=== PATIENT | male | born 1955 | race Caucasian/White ===

== ENCOUNTER 2017-09-27 15:55 | Observation (INO) | payer MEDICARE ==
--- NOTE | 2017-09-27 16:25 | ERPHSYRPT ---
- History of Present Illness Time Seen by Provider: 09/27/17 16:15 Source: patient Exam Limitations: no limitations Patient Subjective Stated Complaint: Pt reports not feeling well since yesterday. Pt with multiple complaints, fever, cough, chills, body aches, headache 8/10, vomiting x 2, no diarrhea today. Triage Nursing Assessment: Pt alert, oriented, answers all questions appropriately. Skin pink, warm, dry. Resps non-labored. Pt speaking in full sentences without difficulty. Pt able to transfer self from wheelchair to cot without difficulty. Pt placed on 2L oxygen at triage due to SPO2 91%. Physician History: The patient is a 61-year-old male with a friend complaining of a cough, fever, shortness of breath, sore throat, and muscle aches since yesterday morning. He did receive his influenza vaccination this year. He's also vomited 2 times. He has taken Tylenol. His past medical history is significant for schizoaffective disorder, depression, pneumonia, and and COPD. Timing/Duration: yesterday Cough Quality/Degree: dry cough Modifying Factors: Improves With: coughing Associated Symptoms: fever, cough, muscle aches, shortness of breath Allergies/Adverse Reactions: No Known Drug Allergies Allergy (Verified 09/27/17 16:05) Home Medications: Olanzapine [Zyprexa] 20 mg PO HS 11/13/14 [History] Venlafaxine HCl [Effexor] 325 mg PO DAILY 11/13/14 [History] Clonazepam [Klonopin] 6 mg PO UD 05/01/16 [History] Benztropine Mesylate [Cogentin] 09/27/17 [History] Olanzapine [Olanzapine] 09/27/17 [History] Omeprazole [Prilosec] 20 mg PO DAILY 09/27/17 [History] Pramipexole Di-HCl 0.5 mg [Mirapex 0.5 MG Tablet] 0.5 mg PO DAILY [History] Hx Tetanus, Diphtheria Vaccination/Date Given: Yes Hx Influenza Vaccination/Date Given: Yes Hx Pneumococcal Vaccination/Date Given: Yes Immunizations Up to Date: Yes - Review of Systems Constitutional: Fever Eyes: No Symptoms Ears, Nose, & Throat: Throat Pain Respiratory: Cough, Dyspnea Cardiac: No Chest Pain, No Edema, No Syncope Abdominal/Gastrointestinal: No Abdominal Pain, No Nausea, No Vomiting, No Diarrhea Genitourinary Symptoms: No Dysuria Musculoskeletal: Myalgias, No Back Pain, No Neck Pain Skin: No Rash Neurological: No Dizziness, No Focal Weakness, No Sensory Changes Psychological: No Symptoms Endocrine: No Symptoms Hematologic/Lymphatic: No Symptoms Immunological/Allergic: No Symptoms All Other Systems: Reviewed and Negative - Past Medical History Pertinent Past Medical History: Yes Neurological History: Migraines ENT History: Macular Degeneration Cardiac History: No Pertinent History Respiratory History: COPD Endocrine Medical History: No Pertinent History GI Medical History: No Pertinent History History: No Pertinent History Psycho-Social History: Other Male Reproductive Disorders: No Pertinent History Other Medical History: Schitzoaffective Disorder, Bipolar - Past Surgical History Past Surgical History: Yes Neuro Surgical History: No Pertinent History Cardiac: No Pertinent History Respiratory: No Pertinent History Gastrointestinal: Hernia Repair Genitourinary: No Pertinent History Musculoskeletal: Orthopedic Surgery Male Surgical History: No Pertinent History Other Surgical History: HERNIA - Social History Smoking Status: Current some day smoker How long have you smoked: 30 Exposure to second hand smoke: No Drug Use: none Patient Lives Alone: No Significant Family History: heart disease - Nursing Vital Signs Nursing Vital Signs: Initial Vital Signs Temperature 98.9 F 09/27/17 16:06 Pulse Rate 119 H 09/27/17 16:06 Respiratory Rate 20 09/27/17 16:06 Blood Pressure 137/82 09/27/17 16:06 O2 Sat by Pulse Oximetry 91 L 09/27/17 16:06 Pain Scale Pain Intensity 10 - Physical Exam General Appearance: mild distress Eye Exam: PERRL/EOMI, eyes nml inspection Ears, Nose, Throat Exam: normal ENT inspection, TMs normal, pharynx normal, moist mucous membranes Neck Exam: normal inspection, non-tender, supple, full range of motion Respiratory Exam: normal breath sounds, lungs clear, No respiratory distress Cardiovascular Exam: regular rate/rhythm, normal heart sounds Gastrointestinal/Abdomen Exam: soft, No tenderness Rectal Exam: not done Back Exam: normal inspection, No CVA tenderness, No vertebral tenderness Extremity Exam: normal inspection, normal range of motion Neurologic Exam: alert, oriented x 3, cooperative, normal mood/affect, sensation nml, No motor deficits Skin Exam: normal color, warm, dry, No rash Lymphatic Exam: No adenopathy SpO2 Interpretation: borderline oxygenation SpO2: 91 Oxygen Delivery: Room Air - Radiology Exams Chest X-ray Interpretation: Interpreted by me, Infiltrates (RML comp to AP CXR 04/17/16) , Other (elevated B hemidiaphragms.) Ordered Tests: Active Orders 24 hr Category Date Time Status IV Insertion STAT Care 09/27/17 16:28 Active Oxygen-ED Only NASAL CANNULA 2 lpm Care 09/27/17 16:28 Active CHEST 2 VIEWS (PA AND LAT) Stat Exams 09/27/17 16:29 Taken BLOOD CULTURE Stat Lab 09/27/17 17:01 Received CBC W DIFF Stat Lab 09/27/17 16:36 Completed CMP Stat Lab 09/27/17 16:36 Completed Lactic Acid Stat Lab 09/27/17 16:28 Completed NT PRO BNP Stat Lab 09/27/17 16:36 Completed TROPONIN Q3H Lab 09/27/17 16:43 Completed TROPONIN Q3H Lab 09/27/17 19:30 Ordered TROPONIN Q3H Lab 09/27/17 22:30 Ordered TROPONIN Q3H Lab 09/28/17 01:30 Ordered TROPONIN Q3H Lab 09/28/17 04:30 Ordered Respiratory Nebulizer STAT RT 09/27/17 16:30 Completed Medication Summary Discontinued Medications Generic Name Dose Route Start Last Admin Trade Name Freq PRN Reason Stop Dose Admin Albuterol/Ipratropium 3 ml 09/27/17 16:28 09/27/17 17:05 Duoneb 0.5-3 Mg/3 Ml Neb IH 09/27/17 16:29 3 ml STAT ONE Administration Albuterol/Ipratropium Confirm 09/27/17 17:08 Duoneb 0.5-3 Mg/3 Ml Neb Administered 09/27/17 17:09 Dose 3 ml IH .STK-MED ONE Sodium Chloride 1,000 mls @ 999 mls/hr 09/27/17 16:31 09/27/17 16:50 Sodium Chloride 0.9% 1000 Ml IV 09/27/17 17:31 999 mls/hr .Q1H1M STA Administration Sodium Chloride Confirm 09/27/17 16:44 Sodium Chloride 0.9% 1000 Ml Administered 09/27/17 16:45 Dose 1,000 mls @ ud .ROUTE .STK-MED ONE Ceftriaxone Sodium/Dextrose 1 g in 50 mls @ 100 mls/hr 09/27/17 17:03 17:39 Rocephin 1 Gm-D5w 50 Ml Bag IV 09/27/17 17:32 100 mls/hr STAT STA Administration Ceftriaxone Sodium/Dextrose Confirm 09/27/17 17:36 Rocephin 1 Gm-D5w 50 Ml Bag Administered 09/27/17 17:37 Dose 1 g in 50 mls @ ud IV .STK-MED ONE Ketorolac Tromethamine 30 mg 09/27/17 16:34 09/27/17 16:50 Toradol 30 Mg Injection IV 09/27/17 16:35 30 mg STAT ONE Administration Ketorolac Tromethamine Confirm 09/27/17 16:44 Toradol 30 Mg Injection Administered 09/27/17 16:45 Dose 30 mg .ROUTE .STK-MED ONE Methylprednisolone Sodium Succinate 125 mg 09/27/17 16:28 09/27/17 16:50 Solu-Medrol 125 Mg IV 09/27/17 16:29 125 mg STAT ONE Administration Methylprednisolone Sodium Succinate Confirm 09/27/17 16:44 Solu-Medrol 125 Mg Administered 09/27/17 16:45 Dose 125 mg .ROUTE .STK-MED ONE Lab/Rad Data: Laboratory Result Diagrams 09/27/17 16:36 09/27/17 16:36 Laboratory Results 09/27/17 09/27/17 09/27/17 Range/Units 17:01 16:43 16:36 WBC (4.0-10.5) K/mm3 RBC (4.1-5.6) M/mm3 Hgb (12.5-18.0) gm/dl Hct (42-50) % MCV (78-100) fl MCH (26-32) pg MCHC (32-36) g/dl RDW (11.5-14.0) % Plt Count (150-450) K/mm3 MPV (6-9.5) fl Gran % (36.0-66.0) % Lymphocytes % (24.0-44.0) % Monocytes % (0.0-12.0) % Eosinophils % (0.00-5.0) % Basophils % (0.0-0.4) % Basophils # (0-0.4) Sodium 130 L (136-145) mEq/L Potassium 3.8 (3.5-5.1) mEq/L Chloride 96 L (98-107) mEq/L Carbon Dioxide 23.1 (21-32) mEq/L Anion Gap 14.4 (5-15) MEQ/L BUN 8 L (9-20) mg/dL Creatinine 1.30 (0.55-1.30) mg/dl Estimated GFR 60 ML/MIN Glucose 115 H (70-110) MG/DL Lactic Acid (0.4-2.0) Calcium 8.1 L (8.5-10.1) mg/dL Total Bilirubin 0.80 (0.2-1.0) mg/dL AST 21 (15-37) U/L ALT 31 (12-78) U/L Alkaline Phosphatase 138 H (46-116) U/L Troponin I < 0.017 (0.000-0.056) ng/ml NT-Pro-B Natriuret Pep 26 (0-125) pg/ml Serum Total Protein 6.7 (6.4-8.2) gm/dL Albumin 3.6 (3.4-5.0) g/dL Influenza Type A Ag NEGATIVE (NEGATIVE) Influenza Type B Ag NEGATIVE (NEGATIVE) RSV (PCR) NEGATIVE (Negative) 09/27/17 09/27/17 Range/Units 16:36 16:28 WBC 12.9 H (4.0-10.5) K/mm3 RBC 4.82 (4.1-5.6) M/mm3 Hgb 15.5 (12.5-18.0) gm/dl Hct 43.8 (42-50) % MCV 90.9 (78-100) fl MCH 32.2 H (26-32) pg MCHC 35.4 (32-36) g/dl RDW 12.8 (11.5-14.0) % Plt Count 246 (150-450) K/mm3 MPV 9.0 (6-9.5) fl Gran % 87.2 H (36.0-66.0) % Lymphocytes % 6.9 L (24.0-44.0) % Monocytes % 5.7 (0.0-12.0) % Eosinophils % 0.1 (0.00-5.0) % Basophils % 0.1 (0.0-0.4) % Basophils # 0.01 (0-0.4) Sodium (136-145) mEq/L Potassium (3.5-5.1) mEq/L Chloride (98-107) mEq/L Carbon Dioxide (21-32) mEq/L Anion Gap (5-15) MEQ/L BUN (9-20) mg/dL Creatinine (0.55-1.30) mg/dl Estimated GFR ML/MIN Glucose (70-110) MG/DL Lactic Acid 1.3 (0.4-2.0) Calcium (8.5-10.1) mg/dL Total Bilirubin (0.2-1.0) mg/dL AST (15-37) U/L ALT (12-78) U/L Alkaline Phosphatase (46-116) U/L Troponin I (0.000-0.056) ng/ml NT-Pro-B Natriuret Pep (0-125) pg/ml Serum Total Protein (6.4-8.2) gm/dL Albumin (3.4-5.0) g/dL Influenza Type A Ag (NEGATIVE) Influenza Type B Ag (NEGATIVE) RSV (PCR) (Negative) - Progress Progress: improved Air Movement: good Blood Culture(s) Obtained: Yes Antibiotics given: Yes Discussed with : Rios Will see patient in: hospital (full admit) Counseled pt/family regarding: lab results, diagnosis, rad results - Departure Time of Disposition: 18:30 Departure Disposition: In-patient Admission (per Dr Nation) Clinical Impression: Pneumonia Condition: Stable Critical Care Time: No Referrals: MICHAEL WILLIAM [Primary Care Provider] -
[2017-09-27] MEDS ORDERED: solu-MEDROL 125 MG IV ONE (16:28)
[2017-09-27] MEDS ORDERED: DUONEB 0.5-3 MG/3 ml Neb IH ONE ×2 (16:28→17:08)
[2017-09-27] MEDS ORDERED: Sodium Chloride 0.9% 1000 ML 1,000 ML IV STA (16:31)
[2017-09-27] MEDS ORDERED: TORAdol 30 mg Injection IV ONE (16:34)
[2017-09-27 16:40] LABS: BASOPHIL % 0.1 % (0.0-0.4); Eosinophil % 0.1 % (0.00-5.0); Granulocytes % 87.2 % (36.0-66.0); Lymphocytes % 6.9 % (24.0-44.0); Mean Cell Volume 90.9 fl (78-100); Mean Corpuscular Hemoglobin 32.2 pg (26-32); Monocytes % 5.7 % (0.0-12.0); Platelet Count 246 K/mm3 (150-450); Red Blood Count 4.82 M/mm3 (4.1-5.6); Red Cell Distribution Width 12.8 % (11.5-14.0); White Blood Count 12.9 K/mm3 (4.0-10.5)
[2017-09-27] MEDS ORDERED: TORAdol 30 mg Injection ONE (16:44)
[2017-09-27] MEDS ORDERED: Sodium Chloride 0.9% 1000 ML 1,000 ML ONE (16:44)
[2017-09-27] MEDS ORDERED: solu-MEDROL 125 MG ONE (16:44)
[2017-09-27 17:03] LABS: ALBUMIN 3.6 g/dL (3.4-5.0); ANION GAP 14.4 MEQ/L (5-15); BILIRUBIN,TOTAL 0.8 mg/dL (0.2-1.0); Carbon Dioxide 23.1 mEq/L (21-32); Potassium 3.8 mEq/L (3.5-5.1); Total Protein 6.7 gm/dL (6.4-8.2)
[2017-09-27] MEDS ORDERED: ROCEPHIN 1 Gm-D5w 50 ml Bag** 1 G/50 ML IVPB IV STA (17:03)
[2017-09-27] MEDS ORDERED: ROCEPHIN 1 Gm-D5w 50 ml Bag** 1 G/50 ML IVPB IV ONE (17:36)
[2017-09-27] MEDS ORDERED: DUONEB 0.5-3 MG/3 ml Neb IH SCH (19:59)
[2017-09-27] MEDS ORDERED: TYLENOL 325 MG PO PRN (19:59)
[2017-09-27] MEDS ORDERED: PROVENTIL 2.5 MG/3 ML NEB IH SCH (19:59)
--- NOTE | 2017-09-27 20:15 | XRAY ---
Indication: Cough and flu symptoms. Comparison: April 17, 2016. PA/lateral chest underinflated today with new right lower lobe infiltrate versus atelectasis. No consolidation or large effusion. Heart is not enlarged. Bony thorax intact again with osteopenia, degenerative changes, and old right rib fractures. Impression: Underinflated lungs with new right lower lobe infiltrate/atelectasis. Correlate clinically.
[2017-09-27] MEDS ORDERED: DUONEB 0.5-3 MG/3 ml Neb IH PRN (21:09)
[2017-09-27] MEDS ORDERED: Nicoderm CQ 21 MG TOP SCH (21:15)
[2017-09-27] MEDS: Sodium Chloride 0.9% 1000 ML 1,000 ML IV SCH (21:30)
[2017-09-27] MEDS ORDERED: zyPREXA 5MG TABLET PO SCH (22:00)
[2017-09-27] MEDS ORDERED: KLONOPIN PO SCH (22:00)
[2017-09-27] MEDS: Zithromax 500 MG/ 250 ML NaCl Premix 500 MG/250 ML IVPB IV SCH (22:05)
[2017-09-28] MEDS: solu-MEDROL 125 MG IV SCH ×3 (00:09→12:48)
[2017-09-28 05:55] LABS: Mean Cell Volume 93.4 fl (78-100); Mean Corpuscular Hemoglobin 31.9 pg (26-32); Mean Platelet Volume 8.9 fl (6-9.5); Platelet Count 219 K/mm3 (150-450); Red Blood Count 4.07 M/mm3 (4.1-5.6); Red Cell Distribution Width 12.5 % (11.5-14.0); White Blood Count 13.2 K/mm3 (4.0-10.5)
[2017-09-28 06:16] LABS: ANION GAP 8.2 MEQ/L (5-15); BLOOD UREA NITROGEN 10 mg/dL (9-20); CHLORIDE 99 mEq/L (98-107); Carbon Dioxide 26.9 mEq/L (21-32); Glucose 159 MG/DL (70-110); Potassium 4.3 mEq/L (3.5-5.1); SODIUM 130 mEq/L (136-145)
[2017-09-28] MEDS ORDERED: Advair Hfa 115/21 Common canister IH SCH (07:00)
[2017-09-28 07:53] VITALS: O2SAT 91
--- NOTE | 2017-09-28 08:02 | PCM.HP ---
History of Present Illness - Chief Complaint Chief Complaint: Shortness of Breath History of Present Illness: The patient is a 61-year-old male with a friend complaining of a cough, fever, shortness of breath, sore throat, and muscle aches since yesterday morning. He did receive his influenza vaccination this year. He's also vomited 2 times. He has taken Tylenol. His past medical history is significant for schizoaffective disorder, depression, pneumonia, and and COPD. - Review of Systems Constitutional: No Fever, No Chills Eyes: No Symptoms Ears, Nose, & Throat: No Symptoms Respiratory: Cough, No Short Of Breath Cardiac: No Chest Pain, No Edema, No Syncope Abdominal/Gastrointestinal: No Abdominal Pain, No Nausea, No Vomiting, No Diarrhea Genitourinary Symptoms: No Dysuria Musculoskeletal: No Back Pain, No Neck Pain Skin: No Rash Neurological: No Dizziness, No Focal Weakness, No Sensory Changes Psychological: No Symptoms Endocrine: No Symptoms Hematologic/Lymphatic: No Symptoms Immunological/Allergic: No Symptoms Medications & Allergies Home Medications: Home Medication List Olanzapine [Zyprexa] 20 mg PO HS 11/13/14 [History Confirmed 05/01/16] Venlafaxine HCl [Effexor] 325 mg PO DAILY 11/13/14 [History Confirmed 09/27/17] Clonazepam [Klonopin] 4 mg PO UD 05/01/16 [History Confirmed 09/27/17] Benztropine Mesylate [Cogentin] 09/27/17 [History] Olanzapine [Olanzapine] 09/27/17 [History] Omeprazole [Prilosec] 20 mg PO DAILY 09/27/17 [History Confirmed 09/27/17] Pramipexole Di-HCl 0.5 mg [Mirapex 0.5 MG Tablet] 0.5 mg PO DAILY [History Confirmed 09/27/17] Allergies/Adverse Reactions: Allergies Allergy/AdvReac Type Severity Reaction Status Date / Time No Known Drug Allergies Allergy Verified 09/27/17 16:05 - Past Medical History Past Medical History: Yes Neurological History: Migraines ENT History: Macular Degeneration Cardiac History: Other Respiratory History: COPD, Pneumonia Endocrine Medical History: No Pertinent History Musculoskelatal History: No Pertinent History GI Medical History: No Pertinent History History: No Pertinent History Pyscho-Social History: Other Male Reproductive Disorders: No Pertinent History Comment: Schitzoaffective Disorder, Bipolar, enlarged heart - Past Surgical History Past Surgical History: Yes Neuro Surgical History: No Pertinent History Cardiac History: No Pertinent History Respiratory Surgery: No Pertinent History GI Surgical History: Hernia Repair Genitourinary Surgical Hx: No Pertinent History Musculskeletal Surgical Hx: Orthopedic Surgery Male Surgical History: No Pertinent History Other Surgical History: HERNIA - Social History Smoking Status: Current every day smoker How long have you smoked: 30 Exposure to second hand smoke: No Alcohol: None Drug Use: none Significant Family History: heart disease - Physical Exam Vital Signs: Vital Signs - 24 hr Temp Pulse Resp BP Pulse Ox 09/28/17 07:52 97.7 F 85 20 121/66 91 L 09/28/17 07:16 87 18 94 L 09/28/17 04:00 19 09/28/17 03:37 97.7 F 79 19 97/59 91 L 09/28/17 00:00 97.7 F 84 15 95/56 93 L 09/27/17 21:09 81 22 95 09/27/17 20:11 98.3 F 87 16 109/61 91 L 09/27/17 20:00 16 09/27/17 19:59 94 L 09/27/17 18:43 92 H 18 113/74 95 09/27/17 18:34 91 L 09/27/17 17:15 88 18 96 09/27/17 16:12 20 91 L 09/27/17 16:06 98.9 F 119 H 20 137/82 91 L Oxygen-Last 24 hours O2 Percentage 3 Liters = 32% O2 Percentage 3 Liters = 32% O2 Percentage 3 Liters = 32% General Appearance: no apparent distress, alert Neurologic Exam: alert, oriented x 3, cooperative, normal mood/affect, nml cerebellar function, nml station & gait, sensation nml, No motor deficits Eye Exam: PERRL/EOMI, eyes nml inspection Ears, Nose, Throat Exam: normal ENT inspection, TMs normal, pharynx normal, moist mucous membranes Neck Exam: normal inspection, non-tender, supple, full range of motion Respiratory Exam: diminished breath sounds, rhonchi, wheezing, No respiratory distress Cardiovascular Exam: regular rate/rhythm, normal heart sounds, normal peripheral pulses Gastrointestinal/Abdomen Exam: soft, normal bowel sounds, No tenderness, No mass Back Exam: normal inspection, normal range of motion, No CVA tenderness, No vertebral tenderness Extremity Exam: normal inspection, normal range of motion, pelvis stable Skin Exam: normal color, warm, dry, No rash Lymphatic Exam: No adenopathy Results - Labs Lab/Micro Results: Lab Results-Last 24 Hours 09/28/17 09/28/17 Range/Units 05:20 05:20 WBC 13.2 H (4.0-10.5) K/mm3 RBC 4.07 L (4.1-5.6) M/mm3 Hgb 13.0 (12.5-18.0) gm/dl Hct 38.0 L (42-50) % MCV 93.4 (78-100) fl MCH 31.9 (26-32) pg MCHC 34.2 (32-36) g/dl RDW 12.5 (11.5-14.0) % Plt Count 219 (150-450) K/mm3 MPV 8.9 (6-9.5) fl Sodium 130 L (136-145) mEq/L Potassium 4.3 (3.5-5.1) mEq/L Chloride 99 (98-107) mEq/L Carbon Dioxide 26.9 (21-32) mEq/L Anion Gap 8.2 (5-15) MEQ/L BUN 10 (9-20) mg/dL Creatinine 1.10 (0.55-1.30) mg/dl Estimated GFR > 60 ML/MIN Glucose 159 H (70-110) MG/DL Calcium 7.7 L (8.5-10.1) mg/dL - Other Procedures and Tests Respiratory Therapy 09/27/17 21:09 Respiratory Nebulizer UD 09/28/17 07:00 Respiratory MDI BID Assessment/Plan (1) Pneumonia Current Visit: Yes Status: Acute Qualifiers: Pneumonia type: due to unspecified organism Laterality: right Lung location: lower lobe of lung Qualified Code(s): J18.1 - Lobar pneumonia, unspecified organism Code(s): J18.9 - PNEUMONIA, UNSPECIFIED ORGANISM (2) COPD (chronic obstructive pulmonary disease) Current Visit: Yes Status: Chronic Qualifiers: COPD type: chronic bronchitis (3) Schizoaffective disorder Current Visit: No Status: Chronic Code(s): F25.9 - SCHIZOAFFECTIVE DISORDER , UNSPECIFIED
[2017-09-28] MEDS: Sodium Chloride 0.9% 1000 ML 1,000 ML IV SCH (09:09)
[2017-09-28] MEDS ORDERED: ROCEPHIN 1 Gm-D5w 50 ml Bag** 1 G/50 ML IVPB IV SCH (10:00)
[2017-09-28] MEDS: Zithromax 500 MG/ 250 ML NaCl Premix 500 MG/250 ML IVPB IV SCH (10:31)
[2017-09-28] MEDS ORDERED: MEDICATION INTERVENTION MC PRN (11:21)
[2017-09-28] MEDS ORDERED: COGENTIN 0.5 MG PO SCH (11:30)
[2017-09-28] MEDS ORDERED: Spiriva 18 Mcg/Cap Inhaler IH SCH (11:30)
[2017-09-28] MEDS ORDERED: Effexor XR 75 MG PO SCH (11:30)
[2017-09-28] MEDS ORDERED: Protonix 40MG Tablet PO SCH (11:30)
[2017-09-28] MEDS ORDERED: KLONOPIN PO SCH (11:30)
[2017-09-28 12:33] VITALS: BP 119/59; PULSE 97
--- NOTE | 2017-09-28 12:44 | PCM.DCORD ---
- Discharge Discharge Date: 09/28/17 Disposition: Home, Self-Care Condition: Stable Prescriptions: New Levofloxacin [Levaquin] 500 mg PO DAILY #7 tablet Continue Pramipexole Di-HCl 0.5 mg [Mirapex 0.5 MG Tablet] 0.5 mg PO DAILY Omeprazole [Prilosec] 40 mg PO DAILY Olanzapine 20 mg PO HS Clonazepam [Klonopin] 4 mg PO HS Clonazepam [Klonopin] 2 mg PO QAM Venlafaxine HCl ER 75 mg [Effexor XR 75 MG] 225 mg PO QAM Benztropine Mesylate 1 mg PO DAILY Tiotropium [place] Inhaler [Spiriva 18 Mcg/Cap Inhaler] 1 cap IH DAILY Ipratropium [place] [Atrovent Hfa] 1 puff IH BID Fluticasone/Salmeterol Disc [Advair 250-50 Diskus 14 Dose] 1 puff IH BIDRT Armodafinil [Nuvigil] 250 mg PO BID Follow up with: MICHAEL WILLIAM [Primary Care Provider] - 1 Week
[2017-09-28] MEDS ORDERED: MOTRIN 400 MG PO PRN (12:52)
[2017-09-28] MEDS ORDERED: NON-FORMULARY ITEM (Armodafinil [Nuvigil] 250 MG) PO SCH (22:00)
[2017-09-29] MEDS ORDERED: BENZTROPINE MESYLATE 1 MG PO SCH (10:00)
[2017-09-29] MEDS ORDERED: Mirapex 0.5 MG Tablet PO SCH (10:00)
== END 2017-09-28 13:50 | disposition home or self-care (01) ==
LOC: ED 15:55 → OBSVTOIN 19:53 → MED SURG 19:53 → UNDOADMOB 19:53 → INTOOBSV 19:53 → MED SURG 09-28 08:00 → UNDODISOB 09-28 13:50
PROVIDERS: ADMIT General Practice; ATTEND General Practice
DX: J18.9 Pneumonia, unspecified organism (principal); J44.9 Chronic obstructive pulmonary disease, unspecified; F25.9 Schizoaffective disorder, unspecified; I51.7 Cardiomegaly; Z79.899 Other long term (current) drug therapy; Z72.0 Tobacco use
CPT/HCPCS: 36000; 36415; 71020; 80048; 80053; 83605; 83880; 84484; 85025; 85027; 87040; 87631; 94640; 94760; 96360; 96365; 96374; 96375; 99285; G0378; J0456; J0696; J1885; J2930; A9270-GY

== ENCOUNTER 2017-12-28 02:17 | Observation (INO) | payer MEDICARE ==
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
[2017-12-28] MEDS ORDERED: Adacel Vial IM ONE ×2 (02:48→02:55)
[2017-12-28] MEDS ORDERED: XYLOCAINE 1% HCL 20 ML MDV IJ ONE (02:48)
[2017-12-28] MEDS ORDERED: Sodium Chloride 0.9% 1000 ML 1,000 ML IV SCH (03:00)
[2017-12-28] MEDS ORDERED: MORPHINE SULFATE 4 MG INJ IV ONE ×2 (03:34→04:23)
[2017-12-28] MEDS ORDERED: XYLOCAINE 1% HCL 20 ML MDV ONE (03:37)
[2017-12-28] MEDS ORDERED: MORPHINE SULFATE 4 MG INJ ONE ×2 (03:42→04:29)
[2017-12-28 04:00] LABS: BASOPHIL % 0.1 % (0.0-0.4); Basophil (Absolute #) 0.01 (0-0.4); Eosinophil % 1.5 % (0.00-5.0); Eosinophil (Absolute #) 0.15 (0-0.5); Granulocyte Absolute (ANC) 7.13 (1.4-6.9); Granulocytes % 69.5 % (36.0-66.0); Hematocrit 45.1 % (42-50); Hemoglobin 15.7 gm/dl (12.5-18.0); Lymphocyte (Absolute #) 2.01 (1.0-4.6); Lymphocytes % 19.6 % (24.0-44.0); Mean Cell Volume 93.6 fl (78-100); Mean Corpuscular Hemoglobin 32.6 pg (26-32); Mean Corpuscular Hgb Concent. 34.8 g/dl (32-36); Mean Platelet Volume 9.1 fl (6-9.5); Monocyte (Absolute #) 0.95 (0.0-1.3); Monocytes % 9.3 % (0.0-12.0); Platelet Count 243 K/mm3 (150-450); Red Blood Count 4.82 M/mm3 (4.1-5.6); Red Cell Distribution Width 13.3 % (11.5-14.0); White Blood Count 10.3 K/mm3 (4.0-10.5)
[2017-12-28 04:21] LABS: ALBUMIN 3.6 g/dL (3.5-5.0); ALKALINE PHOSPHATASE 182 U/L (38-126); ANION GAP 11.6 MEQ/L (5-15); BLOOD UREA NITROGEN 7 mg/dL (9-20); CHLORIDE 104 mmol/L (98-107); Calcium 8.6 mg/dL (8.4-10.2); Carbon Dioxide 27 mmol/L (22-30); Creatinine 1 0.71 mg/dL (0.66-1.25); Glucose 77 mg/dL (74-106); Potassium 3.6 mmol/L (3.5-5.1); SGOT/AST 20 U/L (17-59); SGPT/ALT 72 U/L (0-50); SODIUM 139 mmol/L (137-145); Total Protein 6.1 g/dL (6.3-8.2)
[2017-12-28] MEDS ORDERED: BENADRYL 50 MG/ML IV ONE (04:22)
[2017-12-28] MEDS ORDERED: Zofran 4 MG/2 ML VIAL IV ONE (04:23)
[2017-12-28] MEDS ORDERED: BENADRYL 50 MG/ML ONE (04:28)
[2017-12-28] MEDS ORDERED: Zofran 4 MG/2 ML VIAL ONE (04:28)
[2017-12-28] MEDS ORDERED: Sodium Chloride 0.9% 1000 ML 1,000 ML ONE (04:29)
[2017-12-28 04:31] LABS: ACETAMINOPHEN < 10 ug/ml (10-30); ETHYL ALCOHOL < 10 mg/dL (0-9); SALICYLATE < 1.0 mg/dL (2-20)
[2017-12-28] MEDS ORDERED: BACIGUENT PACKET ONE (06:20)
[2017-12-28 07:06] LABS: Appearance CLEAR (CLEAR); Bilirubin NEGATIVE (NEGATIVE); Blood 50 Ery/ul (0-5); Glucose NEGATIVE (NEGATIVE); Ketones NEGATIVE (NEGATIVE); Leukocyte Esterase NEGATIVE (NEGATIVE); Nitrite NEGATIVE (NEGATIVE); Protein,Urine Dip NEGATIVE (Negative); Specific Gravity 1.005 (1.005-1.025); Urobilinogen NORMAL mg/dL (0-1)
[2017-12-28 07:08] LABS: Bacteria RARE /HPF (NEGATIVE); Epithelial Cells RARE /HPF (FEW); WBC 0-2 /HPF (0-5)
[2017-12-28 07:14] LABS: Amphetamine,Urine NEGATIVE (NEGATIVE); Barbiturate,Urine NEGATIVE (NEGATIVE); Benzodiazepine,Urine NEGATIVE (NEGATIVE); Cocaine,Urine NEGATIVE (NEGATIVE); Methadone,Urine NEGATIVE (NEGATIVE); Opiate,Urine POSITIVE (NEGATIVE); PCP,Urine NEGATIVE (NEGATIVE); THC,Urine NEGATIVE (NEGATIVE)
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
[2017-12-28] MEDS ORDERED: MORPHINE SULFATE 4 MG INJ IV PRN (10:02)
[2017-12-28] MEDS ORDERED: Zofran 4 MG/2 ML VIAL IV PRN (10:02)
[2017-12-28] MEDS ORDERED: Pepcid 20 MG VIAL IV SCH (10:02)
[2017-12-28] MEDS ORDERED: NovoLIN R SQ PRN (10:02)
[2017-12-28 11:52] LABS: Hematocrit 44.5 % (42-50); Hemoglobin 15.2 gm/dl (12.5-18.0); Mean Cell Volume 95.5 fl (78-100); Mean Corpuscular Hemoglobin 32.6 pg (26-32); Mean Corpuscular Hgb Concent. 34.2 g/dl (32-36); Mean Platelet Volume 8.9 fl (6-9.5); Platelet Count 200 K/mm3 (150-450); Red Blood Count 4.66 M/mm3 (4.1-5.6); Red Cell Distribution Width 13.6 % (11.5-14.0); White Blood Count 5.9 K/mm3 (4.0-10.5)
[2017-12-28] MEDS ORDERED: PROVENTIL COMMON CANISTER IH PRN (12:13)
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
[2017-12-28 12:49] LABS: ANION GAP 11.3 MEQ/L (5-15); BLOOD UREA NITROGEN 7 mg/dL (9-20); CHLORIDE 104 mmol/L (98-107); Calcium 8.1 mg/dL (8.4-10.2); Carbon Dioxide 29 mmol/L (22-30); Creatinine 1 0.74 mg/dL (0.66-1.25); Glucose 85 mg/dL (74-106); Potassium 4.3 mmol/L (3.5-5.1); SODIUM 140 mmol/L (137-145)
[2017-12-28 12:55] LABS: PREALBUMIN 17.66 mg/dL (17.6-36.0)
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
[2017-12-28 17:37] VITALS: BP 124/97; PULSE 73; O2SAT 96
[2017-12-28] MEDS ORDERED: Advair Hfa 115/21 Common canister IH SCH (19:00)
== END 2017-12-28 19:30 | disposition short-term general hospital (02) ==
LOC: ED 02:17 → EEVIPCON 02:17 → ICU 09:59 → UNDOADMOB 09:59 → UNDODISOB 19:30
PROVIDERS: ADMIT General Practice; ATTEND General Practice
DX: F32.9 Major depressive disorder, single episode, unspecified (principal); R45.851 Suicidal ideations; S31.119A Laceration without foreign body of abdominal wall, unspecified quadrant without penetration into peritoneal cavity, initial encounter; X78.9XXA Intentional self-harm by unspecified sharp object, initial encounter; Z79.899 Other long term (current) drug therapy
CPT/HCPCS: 93268; 90791; 99285; 96360; 93005; 81000; 36415; 80307 ×2; 85027; 85025; 80048; 80053; 84134; 74176; G0480; G0481; 90471; 90715; G0378; J1200; J2270; J2405; Q3014; A9270-GY

== ENCOUNTER 2019-07-29 13:51 | Emergency (ER) | payer MEDICARE ==
[2019-07-29] MEDS ORDERED: Hydromorphone 1 mg/ml Ampule IV ONE ×2 (14:00→15:38)
[2019-07-29] MEDS ORDERED: Zofran 4 MG/2 ML VIAL IV ONE (14:00)
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
[2019-07-29] MEDS ORDERED: Ativan 2 MG/1 ML VIAL IV ONE ×2 (14:01→14:21)
[2019-07-29] MEDS ORDERED: Zofran 4 MG/2 ML VIAL ONE (14:05)
[2019-07-29] MEDS ORDERED: Ativan 2 MG/1 ML VIAL ONE (14:06)
[2019-07-29] MEDS ORDERED: Hydromorphone 1 mg/ml Ampule ONE ×2 (14:07→15:52)
[2019-07-29 14:25] LABS: Absolute Neutrophil Ct (ANC) 10.93 (1.4-6.9); BASOPHIL % 0.1 % (0.0-0.4); Basophil (Absolute #) 0.01 (0-0.4); Eosinophil % 0.2 % (0.00-5.0); Eosinophil (Absolute #) 0.03 (0-0.5); Hematocrit 42.7 % (42-50); Hemoglobin 15.6 gm/dl (12.5-18.0); Lymphocyte (Absolute #) 0.57 (1.0-4.6); Lymphocytes % 4.7 % (24.0-44.0); Mean Cell Volume 96.8 fl (78-100); Mean Corpuscular Hemoglobin 35.4 pg (26-32); Mean Corpuscular Hgb Concent. 36.5 g/dl (32-36); Mean Platelet Volume 8.9 fl (6-9.5); Monocyte (Absolute #) 0.69 (0.0-1.3); Monocytes % 5.6 % (0.0-12.0); Neutrophil % 89.4 % (36.0-66.0); Platelet Count 328 K/mm3 (150-450); Red Blood Count 4.41 M/mm3 (4.1-5.6); Red Cell Distribution Width 14.1 % (11.5-14.0); White Blood Count 12.2 K/mm3 (4.0-10.5)
[2019-07-29 14:30] LABS: ALBUMIN 4.4 g/dL (3.5-5.0); ALKALINE PHOSPHATASE 115 U/L (38-126); ANION GAP 21.5 MEQ/L (5-15); BLOOD UREA NITROGEN 4 mg/dL (9-20); CHLORIDE 103 mmol/L (98-107); Calcium 9.1 mg/dL (8.4-10.2); Carbon Dioxide 19 mmol/L (22-30); Creatinine 1 0.83 mg/dL (0.66-1.25); Glucose 131 mg/dL (74-106); Potassium 4.1 mmol/L (3.5-5.1); SGOT/AST 64 U/L (17-59); SGPT/ALT 32 U/L (0-50); SODIUM 139 mmol/L (137-145); Total Protein 7.2 g/dL (6.3-8.2)
--- NOTE | 2019-07-29 15:21 | XRAY ---
Indication: Abdomen and back pain. Multiple contiguous axial images obtained through the abdomen and pelvis without contrast as ordered. Comparison: December 28, 2017. Lung bases again hyperinflated. No infiltrate or effusion. Heart is not enlarged. Stable moderate paraesophageal hiatal hernia. Stomach is distended with food/fluid. Noncontrasted stomach and bowel loops appear nonobstructed. Normal air-filled appendix. Again mild diffuse scattered colonic fecal debris throughout and minimal scattered colonic diverticulosis. Gallbladder is moderately distended. Previous tiny gallstone not seen either passed or explained by difference in slice acquisition. No free fluid/air. Remaining liver, pancreas, spleen, adrenal glands, kidneys, ureters, and bladder appear unremarkable for noncontrast exam. Stable mild scattered aortoiliac calcifications without AAA. Osseous structures intact again with mild levoscoliosis and old right lower rib fractures. Impression: 1. Distended gallbladder without gallstones. 2. Again mild diffuse fecal stasis, colonic diverticulosis, and small paraesophageal hiatal hernia. 3. Stable levoscoliosis and old right rib fractures. 4. Remaining CT abdomen/pelvis without contrast exam is negative. CTDI 23.49
--- NOTE | 2019-07-29 15:25 | XRAY ---
Indication: Severe low back pain. Sagittal, coronal, and axial reformatted images of the lumbar spine obtained using the raw data from the CT abdomen/pelvis study of the same day. Comparison: December 28, 2017. Axial images negative for acute fracture or suspicious bony lesions. Stable minimal broad-based disc bulge at L3-L5 levels with right foraminal narrowing. No large disc herniation or spinal canal stenosis. Facets are symmetric. Sagittal and coronal reformatted images demonstrates stable mild levoscoliosis centered at L3. Vertebral body heights and disc spaces maintained. No acute compression fracture or subluxation. CT abdomen/pelvis reported separately. Impression: Stable minimal L3-L5 broad-based disc bulge and levoscoliosis. No new/acute findings.
[2019-07-29 15:56] VITALS: BP 115/83; PULSE 108; O2SAT 94
== END 2019-07-29 16:07 | disposition home or self-care (01) ==
LOC: ED 13:51
DX: M54.5 Low back pain (principal)
CPT/HCPCS: 36000; 36415; 74176; 76376; 80053; 85025; 96374; 96375; 99284; J1170; J2060; J2405

== ENCOUNTER 2020-01-08 05:27 | Emergency (ER) | payer MEDICARE ==
[2020-01-08] MEDS ORDERED: Zofran 4 MG/2 ML VIAL IV ONE (05:43)
[2020-01-08] MEDS ORDERED: SUBLIMAZE 100 MCG/2 ML IV ONE (05:43)
--- NOTE | 2020-01-08 05:43 | ERPHSYRPT ---
- History of Present Illness Historian: patient Exam Limitations: no limitations Hx Tetanus, Diphtheria Vaccination/Date Given: Yes Hx Influenza Vaccination/Date Given: Yes Hx Pneumococcal Vaccination/Date Given: Yes <JUMA MOFFETT - Last Filed: 01/08/20 07:02> <PABLO DOOLEY - Last Filed: 01/08/20 07:39> - History of Present Illness Time Seen by Provider: 01/08/20 05:27 Physician History: About 1 hour ago pt started with non-radiating dull 10/10 upper mid abdominal pain with nausea and vomiting x2 without blood. LBM was yesterday & wnl without blood. Pt deines chest pain, shortness of air, fever, cough, dysuria. (JUMA MOFFETT) Allergies/Adverse Reactions: No Known Drug Allergies Allergy (Verified 01/08/20 05:42) Home Medications: OLANZapine [Olanzapine] 20 mg PO HS 09/27/17 [History] Omeprazole [Prilosec] 40 mg PO DAILY 09/27/17 [History] Pramipexole Di-HCl 0.5 mg [Mirapex 0.5 MG Tablet] 0.5 mg PO HS 09/27/17 [ History] Armodafinil [Nuvigil] 250 mg PO BID 09/28/17 [History] Benztropine Mesylate 1 mg PO DAILY 09/28/17 [History] Clonazepam [Klonopin] 2 mg PO QAM 09/28/17 [History] Clonazepam [Klonopin] 4 mg PO HS 09/28/17 [History] Fluticasone/Salmeterol Disc [Advair 250-50 Diskus 14 Dose] 1 puff IH BIDRT 09/28/17 [History] Ipratropium Bim [Atrovent Hfa] 1 puff IH BID 09/28/17 [History] Tiotropium Bim Inhaler [Spiriva 18 Mcg/Cap Inhaler] 1 cap IH DAILY [History] Venlafaxine HCl ER 75 mg [Effexor XR 75 MG] 225 mg PO QAM 09/28/17 [ History] Magnesium Chloride 64 mg [Slow-Mag 64 MG] 1 tab PO DAILY 12/28/17 [History ] Mirtazapine 45 mg PO HS 12/28/17 [History] Multivit-Min/FA/Lutein/Zeaxant [Icaps Mv Tablet] 2 each PO BID 12/28/17 [History ] Travel Risk - International Travel Have you traveled outside of the country in past 3 weeks: No Have you or anyone close to you been diagnosed with or: No Do your reside in a community with a known COVID-19 case?: Yes If Yes where:: [facility] - Coronavirus Screening Has patient experienced Coronavirus symptoms: No <JUMA MOFFETT - Last Filed: 01/08/20 07:02> - Review of Systems Constitutional: No Fever Respiratory: No Cough, No Dyspnea Cardiac: No Chest Pain Abdominal/Gastrointestinal: Abdominal Pain, Nausea, Vomiting, No Diarrhea Genitourinary Symptoms: No Dysuria All Other Systems: Reviewed and Negative <JUMA MOFFETT - Last Filed: 01/08/20 07:02> - Past Medical History Pertinent Past Medical History: Yes Neurological History: Migraines ENT History: Macular Degeneration Cardiac History: Other Respiratory History: COPD, Pneumonia Endocrine Medical History: No Pertinent History Musculoskeletal History: No Pertinent History GI Medical History: No Pertinent History History: No Pertinent History Psycho-Social History: Other Male Reproductive Disorders: No Pertinent History Other Medical History: Schizoaffective Disorder, Bipolar, enlarged heart - Past Surgical History Past Surgical History: Yes Neuro Surgical History: No Pertinent History Cardiac: No Pertinent History Respiratory: No Pertinent History Gastrointestinal: Hernia Repair Genitourinary: No Pertinent History Musculoskeletal: Orthopedic Surgery Male Surgical History: No Pertinent History Other Surgical History: HERNIA - Social History Smoking Status: Current every day smoker How long have you smoked: 30 Exposure to second hand smoke: Yes Drug Use: none Patient Lives Alone: No Significant Family History: heart disease <JUMA MOFFETT - Last Filed: 01/08/20 07:02> - Physical Exam General Appearance: alert Eye Exam: PERRL/EOMI Ears, Nose, Throat Exam: pharynx normal, moist mucous membranes Neck Exam: normal inspection Respiratory Exam: No respiratory distress Cardiovascular Exam: normal heart sounds Gastrointestinal/Abdomen Exam: soft, normal bowel sounds, tenderness (mild epigastric tenderness) Back Exam: normal range of motion Extremity Exam: No pedal edema Neurologic Exam: alert, cooperative Skin Exam: No cyanosis SpO2 Interpretation: normal SpO2: 96 O2 Delivery: Room Air <JUMA MOFFETT - Last Filed: 01/08/20 07:02> <PABLO DOOLEY - Last Filed: 01/08/20 07:39> - Nursing Vital Signs Nursing Vital Signs: Initial Vital Signs Temperature 97.6 F 01/08/20 05:32 Pulse Rate 77 01/08/20 05:32 Respiratory Rate 18 01/08/20 05:32 Blood Pressure 109/68 01/08/20 05:32 O2 Sat by Pulse Oximetry 96 01/08/20 05:32 Pain Scale Pain Intensity 2 Ordered Tests: Active Orders 24 hr Category Date Time Status IV Insertion STAT Care 01/08/20 05:43 Active ABDOMEN AND PELVIS W/0 CONTRAS [CT] Stat Exams 01/08/20 05:44 Taken AMYLASE Stat Lab 01/08/20 05:55 Completed CBC W DIFF Stat Lab 01/08/20 05:55 Completed CMP Stat Lab 01/08/20 05:55 Completed LIPASE Stat Lab 01/08/20 05:55 Completed MAG [MAGNESIUM] Stat Lab 01/08/20 05:55 Completed UA W/RFX UR CULTURE Stat Lab 01/08/20 07:00 Completed Medication Summary Generic Name Dose Route Start Last Admin Trade Name Freq PRN Reason Stop Dose Admin Sodium Chloride 1,000 mls @ 100 mls/hr 01/08/20 05:45 01/08/20 06:00 Sodium Chloride 0.9% 1000 Ml IV 02/07/20 05:44 100 mls/hr .Q10H LISA Administration Discontinued Medications Generic Name Dose Route Start Last Admin Trade Name Freq PRN Reason Stop Dose Admin Fentanyl Citrate 100 mcg 01/08/20 05:43 01/08/20 06:00 Sublimaze 100 Mcg/2 Ml IV 01/08/20 05:44 100 mcg STAT ONE Administration Fentanyl Citrate Confirm 01/08/20 05:52 Sublimaze 100 Mcg/2 Ml Administered 01/08/20 05:53 Dose 100 mcg .ROUTE .STK-MED ONE Ondansetron HCl 4 mg 01/08/20 05:43 01/08/20 06:00 Zofran 4 Mg/2 Ml Vial IV 01/08/20 05:44 4 mg STAT ONE Administration Ondansetron HCl Confirm 01/08/20 05:52 Zofran 4 Mg/2 Ml Vial Administered 01/08/20 05:53 Dose 4 mg .ROUTE .STK-MED ONE Lab/Rad Data: Laboratory Result Diagrams 01/08/20 05:55 01/08/20 05:55 Laboratory Results 01/08/20 01/08/20 01/08/20 Range/Units 07:00 05:55 05:55 WBC (4.0-10.5) K/mm3 RBC (4.1-5.6) M/mm3 Hgb (12.5-18.0) gm/dl Hct (42-50) % MCV (78-100) fl MCH (26-32) pg MCHC (32-36) g/dl RDW (11.5-14.0) % Plt Count (150-450) K/mm3 MPV (7.5-11.0) fl Gran % (36.0-66.0) % Eos # (Auto) (0-0.5) Absolute Lymphs (auto) (1.0-4.6) Absolute Monos (auto) (0.0-1.3) Lymphocytes % (24.0-44.0) % Monocytes % (0.0-12.0) % Eosinophils % (0.00-5.0) % Basophils % (0.0-0.4) % Absolute Granulocytes (1.4-6.9) Basophils # (0-0.4) Sodium 132 L (137-145) mmol/L Potassium 3.6 (3.5-5.1) mmol/L Chloride 99 (98-107) mmol/L Carbon Dioxide 26 (22-30) mmol/L Anion Gap 10.9 (5-15) MEQ/L BUN 5 L (9-20) mg/dL Creatinine 0.62 L (0.66-1.25) mg/dL Estimated GFR > 60.0 ML/MIN Glucose 175 H (74-106) mg/dL Calcium 8.2 L (8.4-10.2) mg/dL Magnesium 2.0 (1.6-2.3) mg/dL Total Bilirubin 1.10 (0.2-1.3) mg/dL AST 81 H (17-59) U/L ALT 41 (0-50) U/L Alkaline Phosphatase 167 H (38-126) U/L Serum Total Protein 6.3 (6.3-8.2) g/dL Albumin 3.7 (3.5-5.0) g/dL Amylase 101 (30-110) U/L Lipase 383 H (23-300) U/L Urine Color YELLOW (YELLOW) Urine Appearance CLEAR (CLEAR) Urine pH 6.0 (5-6) Ur Specific Leroy 1.014 (1.005-1.025) Urine Protein NEGATIVE (Negative) Urine Ketones NEGATIVE (NEGATIVE) Urine Blood NEGATIVE (0-5) Gelacio/ul Urine Nitrite NEGATIVE (NEGATIVE) Urine Bilirubin NEGATIVE (NEGATIVE) Urine Urobilinogen 4 (0-1) mg/dL Ur Leukocyte Esterase NEGATIVE (NEGATIVE) Urine WBC (Auto) NONE (0-5) /HPF Urine RBC (Auto) NONE (0-2) /HPF U Hyaline Cast (Auto) 3-5 (0-2) /LPF U Epithel Cells (Auto) NONE (FEW) /HPF Urine Bacteria (Auto) NONE (NEGATIVE) /HPF Urine Mucus (Auto) SLIGHT (NEGATIVE) /HPF Urine Culture Reflexed NO (NO) Urine Glucose NEGATIVE (NEGATIVE) mg/dL 01/08/20 Range/Units 05:55 WBC 13.2 H (4.0-10.5) K/mm3 RBC 4.15 (4.1-5.6) M/mm3 Hgb 13.8 (12.5-18.0) gm/dl Hct 40.0 L (42-50) % MCV 96.4 (78-100) fl MCH 33.3 H (26-32) pg MCHC 34.5 (32-36) g/dl RDW 14.0 (11.5-14.0) % Plt Count 300 (150-450) K/mm3 MPV 8.1 (7.5-11.0) fl Gran % 86.9 H (36.0-66.0) % Eos # (Auto) 0.10 (0-0.5) Absolute Lymphs (auto) 0.80 L (1.0-4.6) Absolute Monos (auto) 0.80 (0.0-1.3) Lymphocytes % 6.1 L (24.0-44.0) % Monocytes % 6.1 (0.0-12.0) % Eosinophils % 0.8 (0.00-5.0) % Basophils % 0.1 (0.0-0.4) % Absolute Granulocytes 11.45 H (1.4-6.9) Basophils # 0.01 (0-0.4) Sodium (137-145) mmol/L Potassium (3.5-5.1) mmol/L Chloride (98-107) mmol/L Carbon Dioxide (22-30) mmol/L Anion Gap (5-15) MEQ/L BUN (9-20) mg/dL Creatinine (0.66-1.25) mg/dL Estimated GFR ML/MIN Glucose (74-106) mg/dL Calcium (8.4-10.2) mg/dL Magnesium (1.6-2.3) mg/dL Total Bilirubin (0.2-1.3) mg/dL AST (17-59) U/L ALT (0-50) U/L Alkaline Phosphatase (38-126) U/L Serum Total Protein (6.3-8.2) g/dL Albumin (3.5-5.0) g/dL Amylase (30-110) U/L Lipase (23-300) U/L Urine Color (YELLOW) Urine Appearance (CLEAR) Urine pH (5-6) Ur Specific Leroy (1.005-1.025) Urine Protein (Negative) Urine Ketones (NEGATIVE) Urine Blood (0-5) Gelacio/ul Urine Nitrite (NEGATIVE) Urine Bilirubin (NEGATIVE) Urine Urobilinogen (0-1) mg/dL Ur Leukocyte Esterase (NEGATIVE) Urine WBC (Auto) (0-5) /HPF Urine RBC (Auto) (0-2) /HPF U Hyaline Cast (Auto) (0-2) /LPF U Epithel Cells (Auto) (FEW) /HPF Urine Bacteria (Auto) (NEGATIVE) /HPF Urine Mucus (Auto) (NEGATIVE) /HPF Urine Culture Reflexed (NO) Urine Glucose (NEGATIVE) mg/dL <JUMA MOFFETT - Last Filed: 01/08/20 07:02> - Progress Progress: improved Counseled pt/family regarding: lab results, diagnosis, need for follow-up <PABLO DOOLEY - Last Filed: 01/08/20 07:39> - Progress Progress Note: 01/08/20 07:36 I received checkout on patient from Dr. Moffett. Per him, patient had abdominal pain last night. We were to follow-up on CT results and order an ultrasound. CT scan shows no gallbladder wall thickening. However mild distention of the gallbladder. Without signs of acute cholecystitis. Dr. Moffett wanted to order an ultrasound on the patient for further evaluation. I feel this is very reasonable as patient may have subtle acute cholecystitis only seen on ultrasound. I went into reexamine the patient. On my abdominal reexam the patient has no abdominal pain at all. I did recommend an ultrasound to the patient today. This is because he does have a slight increase in his white count, slight increase in white lipase, slightly elevated liver enzymes. Therefore, he may have the early stages of acute cholecystitis. I did explain the risks and benefits of an ultrasound today. The patient declines it today. I did discuss strict return precautions with the patient. He should return here for any new or changing abdominal pain. He will need an abdominal reexam in 24 hours with his PCP. He should return here immediately should anything change in his status. Patient states his understanding and will follow-up as described. He will not hesitate to call 911 and return should anything change. Plan of care was discussed with patient and all questions answered. The patient is agreeable to be discharged home and both verbal and printed discharge instructions were provided.The patient agreed to seek outpatient follow up as discussed. The patient was given strict instructions to return to the emergency department for worsening symptoms or any other emergent concerns. The patient verbalized understanding. (PABLO DOOLEY) <JUMA MOFFETT - Last Filed: 01/08/20 07:02> - Departure Departure Disposition: Home Critical Care Time: No <PABLO DOOLEY - Last Filed: 01/08/20 07:39> - Departure Clinical Impression: Abdominal pain Condition: Stable Referrals: KENNETH MCKEON MD [Primary Care Provider] - Instructions: Acute Abdomen (Belly Pain), Adult (DC)
[2020-01-08] MEDS ORDERED: Sodium Chloride 0.9% 1000 ML 1,000 ML IV SCH (05:45)
[2020-01-08] MEDS ORDERED: Zofran 4 MG/2 ML VIAL ONE (05:52)
[2020-01-08] MEDS ORDERED: SUBLIMAZE 100 MCG/2 ML ONE (05:52)
[2020-01-08] MEDS ORDERED: Sodium Chloride 0.9% 1000 ML 1,000 ML ONE (05:53)
[2020-01-08 06:05] LABS: Absolute Neutrophil Ct (ANC) 11.45 (1.4-6.9); BASOPHIL % 0.1 % (0.0-0.4); Basophil (Absolute #) 0.01 (0-0.4); Eosinophil % 0.8 % (0.00-5.0); Hemoglobin 13.8 gm/dl (12.5-18.0); Lymphocytes % 6.1 % (24.0-44.0); Mean Cell Volume 96.4 fl (78-100); Mean Corpuscular Hemoglobin 33.3 pg (26-32); Mean Corpuscular Hgb Concent. 34.5 g/dl (32-36); Mean Platelet Volume 8.1 fl (7.5-11.0); Monocytes % 6.1 % (0.0-12.0); Neutrophil % 86.9 % (36.0-66.0); Platelet Count 300 K/mm3 (150-450); Red Blood Count 4.15 M/mm3 (4.1-5.6); White Blood Count 13.2 K/mm3 (4.0-10.5)
[2020-01-08 06:22] LABS: ALBUMIN 3.7 g/dL (3.5-5.0); ALKALINE PHOSPHATASE 167 U/L (38-126); AMYLASE 101 U/L (30-110); ANION GAP 10.9 MEQ/L (5-15); BLOOD UREA NITROGEN 5 mg/dL (9-20); CHLORIDE 99 mmol/L (98-107); Calcium 8.2 mg/dL (8.4-10.2); Carbon Dioxide 26 mmol/L (22-30); Creatinine 1 0.62 mg/dL (0.66-1.25); Glucose 175 mg/dL (74-106); LIPASE 383 U/L (23-300); Potassium 3.6 mmol/L (3.5-5.1); SGOT/AST 81 U/L (17-59); SGPT/ALT 41 U/L (0-50); SODIUM 132 mmol/L (137-145); Total Protein 6.3 g/dL (6.3-8.2)
[2020-01-08 07:20] LABS: Appearance CLEAR (CLEAR); Bilirubin NEGATIVE (NEGATIVE); Blood NEGATIVE Ery/ul (0-5); Glucose NEGATIVE (NEGATIVE); Ketones NEGATIVE (NEGATIVE); Leukocyte Esterase NEGATIVE (NEGATIVE); Mucus SLIGHT /HPF (NEGATIVE); Nitrite NEGATIVE (NEGATIVE); Protein,Urine Dip NEGATIVE (Negative); Specific Gravity 1.014 (1.005-1.025); Urobilinogen 4 mg/dL (0-1)
[2020-01-08 08:14] VITALS: BP 118/74; PULSE 80; O2SAT 94
--- NOTE | 2020-01-08 08:49 | XRAY ---
Indication: Abdomen pain and emesis. Multiple contiguous axial images obtained through the abdomen and pelvis without contrast as ordered. Comparison: July 29, 2019 Lung bases again hyperinflated with now bibasilar atelectasis/scarring and tiny left effusion. Heart is not enlarged. Stable moderate-sized paraesophageal hiatal hernia now food filled. Noncontrasted stomach and bowel loops appear nonobstructed. Normal air-filled appendix. There is again mild scattered colonic fecal debris and minimal colonic diverticulosis. No free fluid/air. Stable nonobstructing punctate left renal calculus. New 6-7 mm gallstone. Remaining liver, gallbladder, pancreas, spleen, adrenal glands, kidneys, ureters, and bladder appear unremarkable for noncontrast exam. Stable mild aortoiliac calcifications without AAA. Osseous structures intact again with mild lumbar levoscoliosis and old right lower rib fractures. Impression: 1. Stable paraesophageal hiatal hernia. 2. New subcentimeter gallstone. 3. Again mild fecal stasis, colonic diverticulosis, and nonobstructing left renal micro-calculus. Comment: Preliminary interpretation was made by [facility]. No critical discrepancy.
== END 2020-01-08 09:10 | disposition home or self-care (01) ==
LOC: ED 05:27
DX: R10.9 Unspecified abdominal pain (principal); I51.7 Cardiomegaly; Z72.0 Tobacco use; Z79.899 Other long term (current) drug therapy
CPT/HCPCS: 36000; 36415; 74176; 80053; 81001; 82150; 83690; 83735; 85025; 96374; 96375; 99284; J2405; J3010

== ENCOUNTER 2021-01-28 21:05 | Inpatient (IN) | payer MEDICARE, BC ==
--- NOTE | 2021-01-28 21:11 | ERPHSYRPT ---
- History of Present Illness Time Seen by Provider: 01/28/21 21:11 Historian: patient Exam Limitations: no limitations Physician History: This is a 65-year-old white male whose had 5-day history of generalized abdominal pain. He does state that in the epigastric area the pain might be worse. He had associated nausea but no vomiting. He said no diarrhea. Patient denies primary chest pain. He does not have shortness of breath. Patient has history of chronic back pain, gastroesophageal reflux disease, COPD, migraine headaches, schizoaffective disorder and bipolar disorder. Patient was brought into the emergency room for evaluation and pain management. Timing/Duration: day(s) (5) Activities at Onset: none Quality: aching Abdominal Pain Onset Location: generalized abdomen Pain Radiation: no radiation Severity of Pain-Max: moderate Severity of Pain-Current: moderate Associated Symptoms: nausea, No diarrhea, No vomiting Previous symptoms: same symptoms as today Allergies/Adverse Reactions: No Known Drug Allergies Allergy (Verified 01/28/21 21:36) Home Medications: OLANZapine [Olanzapine] 20 mg PO HS 09/27/17 [History] Omeprazole [Prilosec] 40 mg PO DAILY 09/27/17 [History] Pramipexole Di-HCl 0.5 mg [Mirapex 0.5 MG Tablet] 0.5 mg PO HS 09/27/17 [History] Armodafinil [Nuvigil] 250 mg PO BID 09/28/17 [History] Benztropine Mesylate 1 mg PO DAILY 09/28/17 [History] Clonazepam [Klonopin] 2 mg PO QAM 09/28/17 [History] Clonazepam [Klonopin] 4 mg PO HS 09/28/17 [History] Fluticasone/Salmeterol Disc [Advair 250-50 Diskus 14 Dose] 1 puff IH BIDRT 09/28/17 [History] Ipratropium [place] [Atrovent Hfa] 1 puff IH BID 09/28/17 [History] Tiotropium [place] Inhaler [Spiriva 18 Mcg/Cap Inhaler] 1 cap IH DAILY 09/28/17 [History] Venlafaxine HCl ER 75 mg [Effexor XR 75 MG] 225 mg PO QAM 09/28/17 [History] Magnesium Chloride 64 mg [Slow-Mag 64 MG] 1 tab PO DAILY 12/28/17 [History] Mirtazapine 45 mg PO HS 12/28/17 [History] Multivit-Min/FA/Lutein/Zeaxant [Icaps Mv Tablet] 2 each PO BID 12/28/17 [History] Hx Tetanus, Diphtheria Vaccination/Date Given: Yes Hx Influenza Vaccination/Date Given: Yes Hx Pneumococcal Vaccination/Date Given: Yes Travel Risk - International Travel Have you traveled outside of the country in past 3 weeks: No - Coronavirus Screening Are you exhibiting any of the following symptoms?: No Close contact with a COVID-19 positive Pt in past 14-21 Days: No - Vaccine Status Have you recieved a Covid-19 vaccination: No - Review of Systems Constitutional: No Symptoms Eyes: No Symptoms Ears, Nose, & Throat: No Symptoms Respiratory: No Symptoms Cardiac: No Symptoms Abdominal/Gastrointestinal: Abdominal Pain, Nausea, No Vomiting, No Diarrhea Genitourinary Symptoms: No Symptoms Musculoskeletal: No Symptoms Skin: No Symptoms Neurological: No Symptoms Psychological: No Symptoms Endocrine: No Symptoms Hematologic/Lymphatic: No Symptoms Immunological/Allergic: No Symptoms All Other Systems: Reviewed and Negative - Past Medical History Pertinent Past Medical History: Yes Neurological History: Migraines ENT History: Macular Degeneration Cardiac History: Other Respiratory History: COPD, Pneumonia Endocrine Medical History: No Pertinent History Musculoskeletal History: No Pertinent History GI Medical History: No Pertinent History History: No Pertinent History Psycho-Social History: Other Male Reproductive Disorders: No Pertinent History Other Medical History: Schizoaffective Disorder, Bipolar, enlarged heart - Past Surgical History Past Surgical History: Yes Neuro Surgical History: No Pertinent History Cardiac: No Pertinent History Respiratory: No Pertinent History Gastrointestinal: Hernia Repair Genitourinary: No Pertinent History Musculoskeletal: Orthopedic Surgery Male Surgical History: No Pertinent History Other Surgical History: HERNIA - Social History Smoking Status: Current every day smoker How long have you smoked: 30 Exposure to second hand smoke: Yes Drug Use: none Patient Lives Alone: No Significant Family History: heart disease - Nursing Vital Signs Nursing Vital Signs: Initial Vital Signs Pulse Rate 93 H 01/28/21 21:14 Respiratory Rate 22 01/28/21 21:14 Blood Pressure 141/83 01/28/21 21:14 O2 Sat by Pulse Oximetry 96 01/28/21 21:14 Pain Scale Pain Intensity 7 - Physical Exam General Appearance: no apparent distress, alert, anxiety Eye Exam: PERRL/EOMI, eyes nml inspection Ears, Nose, Throat Exam: normal ENT inspection, moist mucous membranes Neck Exam: normal inspection, non-tender, supple, full range of motion Respiratory Exam: normal breath sounds, lungs clear, airway intact, No chest tenderness, No respiratory distress Cardiovascular Exam: regular rate/rhythm, normal heart sounds, normal peripheral pulses Gastrointestinal/Abdomen Exam: soft, normal bowel sounds, tenderness (Mild diffuse), guarding, No rebound Rectal Exam: not done Back Exam: normal inspection, normal range of motion, No CVA tenderness, No vertebral tenderness Extremity Exam: normal inspection, normal range of motion, pelvis stable Neurologic Exam: alert, oriented x 3, cooperative, ecology teacher II-XII nml as tested, normal mood/affect, nml cerebellar function, nml station & gait, sensation nml Skin Exam: normal color, warm, dry Lymphatic Exam: No adenopathy SpO2 Interpretation: normal O2 Delivery: Room Air - Course Nursing assessment & vital signs reviewed: Yes EKG Interpreted by Me: RATE (91), Sinus Rhythm, NORMAL AXIS, NORMAL INTERVALS, NORMAL QRS, NORMAL ST-T, Other (No acute ischemic changes on today's EKG. There is no change when compared to the EKG dated 12/28/2017) Ordered Tests: Active Orders 24 hr Category Date Time Status EKG-ER Only STAT Care 01/28/21 21:29 Active IV Insertion STAT Care 01/28/21 21:26 Active Oxygen-ED Only Nasal Cannula 2 lpm Care 01/28/21 21:30 Active ABDOMEN AND PELVIS W/0 CONTRAS [CT] Stat Exams 01/28/21 21:26 Taken AMYLASE Stat Lab 01/28/21 21:30 Completed CBC W DIFF Stat Lab 01/28/21 21:30 Completed CMP Stat Lab 01/28/21 21:30 Completed LIPASE Stat Lab 01/28/21 21:30 Completed Lactic Acid Stat Lab 01/28/21 21:26 Completed Lactic Acid Stat Lab 01/28/21 23:38 Received TROPONIN Q3H Lab 01/28/21 21:30 Completed TROPONIN Q3H Lab 01/29/21 00:30 Ordered TROPONIN Q3H Lab 01/29/21 03:30 Ordered TROPONIN Q3H Lab 01/29/21 06:30 Ordered TROPONIN Q3H Lab 01/29/21 09:30 Ordered UA W/RFX UR CULTURE Stat Lab 01/28/21 21:26 Ordered Medication Summary Discontinued Medications Generic Name Dose Route Start Last Admin Trade Name Angelica PRN Reason Stop Dose Admin Sodium Chloride 1,000 mls @ 999 mls/hr 01/28/21 21:26 01/28/21 22:50 Sodium Chloride 0.9% 1000 Ml IV 01/28/21 22:26 Infused .Q1H1M STA Infusion Sodium Chloride Confirm 01/28/21 21:31 Sodium Chloride 0.9% 1000 Ml Administered 01/28/21 21:32 Dose 1,000 mls @ ud .ROUTE .STK-MED ONE Meperidine HCl 50 mg 01/28/21 21:28 01/28/21 21:35 Demerol 50 Mg IV 01/28/21 21:29 50 mg STAT ONE Administration Meperidine HCl Confirm 01/28/21 21:31 Demerol 50 Mg Administered 01/28/21 21:32 Dose 50 mg .ROUTE .STK-MED ONE Meperidine HCl 50 mg 01/28/21 23:14 01/28/21 23:18 Demerol 50 Mg IV 01/28/21 23:15 50 mg STAT ONE Administration Meperidine HCl Confirm 01/28/21 23:16 Demerol 50 Mg Administered 01/28/21 23:17 Dose 50 mg .ROUTE .STK-MED ONE Ondansetron HCl 4 mg 01/28/21 21:26 01/28/21 21:35 Zofran 4 Mg/2 Ml Vial IV 01/28/21 21:27 4 mg STAT ONE Administration Ondansetron HCl Confirm 01/28/21 21:31 Zofran 4 Mg/2 Ml Vial Administered 01/28/21 21:32 Dose 4 mg .ROUTE .STK-MED ONE Lab/Rad Data: Laboratory Result Diagrams 01/28/21 21:30 01/28/21 21:30 Laboratory Results 01/28/21 01/28/21 01/28/21 Range/Units 21:30 21:30 21:30 WBC 5.8 (4.0-10.5) K/mm3 RBC 4.41 (4.1-5.6) M/mm3 Hgb 15.0 (12.5-18.0) gm/dl Hct 44.2 (42-50) % MCV 100.2 H (78-100) fl MCH 34.0 H (26-32) pg MCHC 33.9 (32-36) g/dl RDW 13.9 (11.5-14.0) % Plt Count 190 (150-450) K/mm3 MPV 9.1 (7.5-11.0) fl Gran % 63.9 (36.0-66.0) % Eos # (Auto) 0.14 (0-0.5) Absolute Lymphs (auto) 1.22 (1.0-4.6) Absolute Monos (auto) 0.71 (0.0-1.3) Lymphocytes % 21.2 L (24.0-44.0) % Monocytes % 12.3 H (0.0-12.0) % Eosinophils % 2.4 (0.00-5.0) % Basophils % 0.2 (0.0-0.4) % Absolute Granulocytes 3.68 (1.4-6.9) Basophils # 0.01 (0-0.4) Sodium 131 L (137-145) mmol/L Potassium 4.0 (3.5-5.1) mmol/L Chloride 101 (98-107) mmol/L Carbon Dioxide 23 (22-30) mmol/L Anion Gap 11.5 (5-15) MEQ/L BUN 11 (9-20) mg/dL Creatinine 1.12 (0.66-1.25) mg/dL Estimated GFR > 60.0 ML/MIN Glucose 98 (74-106) mg/dL Lactic Acid (0.4-2.0) Calcium 8.3 L (8.4-10.2) mg/dL Total Bilirubin 0.90 (0.2-1.3) mg/dL AST 174 H (17-59) U/L ALT 352 H (0-50) U/L Alkaline Phosphatase 266 H (38-126) U/L Troponin I < 0.012 (0.000-0.034) ng/mL Serum Total Protein 6.6 (6.3-8.2) g/dL Albumin 3.9 (3.5-5.0) g/dL Amylase 49 (30-110) U/L Lipase 120 (23-300) U/L 01/28/21 Range/Units 21:26 WBC (4.0-10.5) K/mm3 RBC (4.1-5.6) M/mm3 Hgb (12.5-18.0) gm/dl Hct (42-50) % MCV (78-100) fl MCH (26-32) pg MCHC (32-36) g/dl RDW (11.5-14.0) % Plt Count (150-450) K/mm3 MPV (7.5-11.0) fl Gran % (36.0-66.0) % Eos # (Auto) (0-0.5) Absolute Lymphs (auto) (1.0-4.6) Absolute Monos (auto) (0.0-1.3) Lymphocytes % (24.0-44.0) % Monocytes % (0.0-12.0) % Eosinophils % (0.00-5.0) % Basophils % (0.0-0.4) % Absolute Granulocytes (1.4-6.9) Basophils # (0-0.4) Sodium (137-145) mmol/L Potassium (3.5-5.1) mmol/L Chloride (98-107) mmol/L Carbon Dioxide (22-30) mmol/L Anion Gap (5-15) MEQ/L BUN (9-20) mg/dL Creatinine (0.66-1.25) mg/dL Estimated GFR ML/MIN Glucose (74-106) mg/dL Lactic Acid 3.3 H (0.4-2.0) Calcium (8.4-10.2) mg/dL Total Bilirubin (0.2-1.3) mg/dL AST (17-59) U/L ALT (0-50) U/L Alkaline Phosphatase (38-126) U/L Troponin I (0.000-0.034) ng/mL Serum Total Protein (6.3-8.2) g/dL Albumin (3.5-5.0) g/dL Amylase (30-110) U/L Lipase (23-300) U/L - Progress Progress: improved, re-examined Progress Note: 01/28/21 23:45 CAT scan of the abdomen and pelvis without contrast shows a hiatal hernia is present with possible thickening of the wall of the distal esophagus. There is cholelithiasis and interval increase in distention of the gallbladder. There appears to be mild stranding near the neck of the gallbladder. 01/28/21 23:46 Medical decision making: This patient has gallbladder distention with cholelithiasis and mild stranding near the neck of the gallbladder. Patient will be placed in observation, repeat labs will be performed tomorrow morning, will obtain a gallbladder ultrasound, and we will obtain a general surgical consultation with the [facility]. Specifically, the patient would like to be evaluated and possibly operated on by Dr. Sawyer [facility]. Discussed with : Barb Counseled pt/family regarding: lab results, diagnosis, need for follow-up, rad results - Departure Departure Disposition: Observation Clinical Impression: Acute calculous cholecystitis Condition: Stable Critical Care Time: No Referrals: KENNETH MCKEON MD [Primary Care Provider] -
[2021-01-28] MEDS ORDERED: Zofran 4 MG/2 ML VIAL IV ONE (21:26)
[2021-01-28] MEDS ORDERED: Sodium Chloride 0.9% 1000 ML 1,000 ML IV STA (21:26)
[2021-01-28] MEDS ORDERED: DEMEROL 50 MG IV ONE ×2 (21:28→23:14)
[2021-01-28] MEDS ORDERED: DEMEROL 50 MG ONE ×2 (21:31→23:16)
[2021-01-28] MEDS ORDERED: Sodium Chloride 0.9% 1000 ML 1,000 ML ONE (21:31)
[2021-01-28] MEDS ORDERED: Zofran 4 MG/2 ML VIAL ONE (21:31)
[2021-01-28 21:40] LABS: Absolute Neutrophil Ct (ANC) 3.68 (1.4-6.9); BASOPHIL % 0.2 % (0.0-0.4); Basophil (Absolute #) 0.01 (0-0.4); Eosinophil % 2.4 % (0.00-5.0); Eosinophil (Absolute #) 0.14 (0-0.5); Hematocrit 44.2 % (42-50); Lymphocyte (Absolute #) 1.22 (1.0-4.6); Lymphocytes % 21.2 % (24.0-44.0); Mean Cell Volume 100.2 fl (78-100); Mean Corpuscular Hgb Concent. 33.9 g/dl (32-36); Mean Platelet Volume 9.1 fl (7.5-11.0); Monocyte (Absolute #) 0.71 (0.0-1.3); Monocytes % 12.3 % (0.0-12.0); Neutrophil % 63.9 % (36.0-66.0); Platelet Count 190 K/mm3 (150-450); Red Blood Count 4.41 M/mm3 (4.1-5.6); Red Cell Distribution Width 13.9 % (11.5-14.0); White Blood Count 5.8 K/mm3 (4.0-10.5)
[2021-01-28 21:50] LABS: ALBUMIN 3.9 g/dL (3.5-5.0); ALKALINE PHOSPHATASE 266 U/L (38-126); AMYLASE 49 U/L (30-110); ANION GAP 11.5 MEQ/L (5-15); BLOOD UREA NITROGEN 11 mg/dL (9-20); CHLORIDE 101 mmol/L (98-107); Calcium 8.3 mg/dL (8.4-10.2); Carbon Dioxide 23 mmol/L (22-30); Creatinine 1 1.12 mg/dL (0.66-1.25); EST GLOMERULAR FILTRATION RATE > 60.0 ML/MIN; Glucose 98 mg/dL (74-106); LIPASE 120 U/L (23-300); SGOT/AST 174 U/L (17-59); SGPT/ALT 352 U/L (0-50); SODIUM 131 mmol/L (137-145); Total Protein 6.6 g/dL (6.3-8.2)
[2021-01-28] MEDS ORDERED: Levofloxacin 500MG/100ML D5W 500 MG/100 ML BAG IV STA (23:57)
[2021-01-29] MEDS ORDERED: Levofloxacin 500MG/100ML D5W 500 MG/100 ML BAG IV ONE (00:05)
[2021-01-29 00:52] LABS: INFLUENZA A NEGATIVE (NEGATIVE); INFLUENZA B NEGATIVE (NEGATIVE); RESPIRATORY SYNCTIAL VIRUS NEGATIVE (Negative)
[2021-01-29] MEDS ORDERED: Nicoderm CQ 21 MG TOP SCH (03:00)
[2021-01-29] MEDS: Sodium Chloride 0.9% 1000 ML 1,000 ML IV SCH ×3 (03:17→20:40)
[2021-01-29 03:32] LABS: Appearance CLEAR (CLEAR); Bilirubin NEGATIVE (NEGATIVE); Blood NEGATIVE Ery/ul (0-5); Glucose NEGATIVE (NEGATIVE); Ketones NEGATIVE (NEGATIVE); Leukocyte Esterase NEGATIVE (NEGATIVE); Mucus SLIGHT /HPF (NEGATIVE); Nitrite NEGATIVE (NEGATIVE); Protein,Urine Dip NEGATIVE (Negative); Specific Gravity 1.012 (1.005-1.025); Urobilinogen 4 mg/dL (0-1)
[2021-01-29 05:07] LABS: Absolute Neutrophil Ct (ANC) 2.56 (1.4-6.9); BASOPHIL % 0.2 % (0.0-0.4); Basophil (Absolute #) 0.01 (0-0.4); Eosinophil % 3.6 % (0.00-5.0); Eosinophil (Absolute #) 0.17 (0-0.5); Hematocrit 41.6 % (42-50); Hemoglobin 13.7 gm/dl (12.5-18.0); Lymphocyte (Absolute #) 1.41 (1.0-4.6); Lymphocytes % 30.2 % (24.0-44.0); Mean Cell Volume 103.2 fl (78-100); Mean Corpuscular Hgb Concent. 32.9 g/dl (32-36); Mean Platelet Volume 8.8 fl (7.5-11.0); Monocyte (Absolute #) 0.52 (0.0-1.3); Monocytes % 11.1 % (0.0-12.0); Neutrophil % 54.9 % (36.0-66.0); Platelet Count 158 K/mm3 (150-450); Red Blood Count 4.03 M/mm3 (4.1-5.6); Red Cell Distribution Width 14.1 % (11.5-14.0); White Blood Count 4.7 K/mm3 (4.0-10.5)
[2021-01-29 05:20] LABS: AMYLASE 52 U/L (30-110); LIPASE 295 U/L (23-300)
[2021-01-29 05:24] LABS: ALBUMIN 3.3 g/dL (3.5-5.0); ALKALINE PHOSPHATASE 242 U/L (38-126); ANION GAP 8.2 MEQ/L (5-15); BLOOD UREA NITROGEN 9 mg/dL (9-20); CHLORIDE 101 mmol/L (98-107); Calcium 7.9 mg/dL (8.4-10.2); Carbon Dioxide 28 mmol/L (22-30); Creatinine 1 0.74 mg/dL (0.66-1.25); EST GLOMERULAR FILTRATION RATE > 60.0 ML/MIN; Glucose 84 mg/dL (74-106); Potassium 4.3 mmol/L (3.5-5.1); SGOT/AST 109 U/L (17-59); SGPT/ALT 294 U/L (0-50); SODIUM 133 mmol/L (137-145); Total Protein 5.7 g/dL (6.3-8.2)
[2021-01-29] MEDS: DEMEROL 50 MG IV PRN ×3 (08:10→20:40)
--- NOTE | 2021-01-29 08:48 | XRAY ---
Indication: Abdomen pain, nausea, and elevated liver enzymes. Multiple contiguous axial images obtained through the abdomen and pelvis without contrast. Comparison: There are multiple priors, most recent January 08, 2020. Lung bases remain hyperinflated with scattered subsegmental atelectasis/scarring. No infiltrate or effusion. Heart is not enlarged. Stable moderate-sized paraesophageal hiatal hernia. Stomach is distended with food/fluid. Noncontrasted stomach and bowel loops nonobstructed again with normal-appearing appendix. There is increasing mild diffuse scattered colonic fecal debris throughout. No free fluid/air. Gallbladder distended with interval enlarging 1.4 cm stone. No abnormal biliary distention. Stable nonobstructing left renal punctate calculus. Remaining liver, pancreas, spleen, adrenal glands, kidneys, ureters, and bladder are unremarkable for noncontrast exam. Stable mild scattered aortoiliac calcifications without AAA. Osseous structures demonstrates new T12 compression fracture with kyphoplasty. There remains mild multilevel thoracolumbar degenerative spondylosis, mild lumbar levoscoliosis, and old bilateral lower rib fractures. Impression: 1. Distended gallbladder with interval enlarging gallstone. Gallbladder sonogram may yield further information. 2. Worsening diffuse fecal stasis. 3. Again incidental paraesophageal hiatal hernia, nonobstructing left renal punctate calculus, and chronic bony findings. Comment: Preliminary interpretation was made by [facility]. No critical discrepancy.
[2021-01-29] MEDS ORDERED: MEDICATION INTERVENTION PO SCH (09:45)
[2021-01-29] MEDS ORDERED: NON-FORMULARY ITEM (Armodafinil [Nuvigil] 250 MG) PO SCH (10:00)
[2021-01-29] MEDS: KLONOPIN PO SCH ×2 (10:35→22:39)
[2021-01-29] MEDS: Effexor XR 75 MG PO SCH (10:35)
--- NOTE | 2021-01-29 10:58 | XRAY ---
Indication: Abdomen pain. Cholecystitis. Two-dimensional gallbladder sonogram performed. Comparison: None Pancreas obscured due to overlying bowel gas. Gallbladder normally distended with multiple gallstones, largest 2 cm. Also abnormal gallbladder wall thickening up to 4 mm and tiny gallbladder wall echodensities with common tail artifact favoring adenomyomatosis. No pericholecystic fluid. Common bile duct measures 2.1 mm. Remaining visualized liver and right kidney sonographically unremarkable. Right kidney measures 10 cm in length. No ascites. Impression: 1. Nonvisualization pancreas. 2. Cholelithiasis. Also abnormal gallbladder wall thickening with sonographic features favoring adenomyomatosis.
--- NOTE | 2021-01-29 12:06 | PCM.HP ---
History of Present Illness - Chief Complaint Chief Complaint: abd pain for 2-3 days History of Present Illness: is a 65 year old male.who had 5-day history of generalized abdominal pain. He does state that in the epigastric area the pain might be worse. He had associated nausea but no vomiting. He said no diarrhea. Patient denies primary chest pain. He does not have shortness of breath. Patient has history of chronic back pain, gastroesophageal reflux disease, COPD, migraine headaches, schizoaffective disorder and bipolar disorder. Patient was brought into the emergency room for evaluation and pain management. - Review of Systems Constitutional: No Fever, No Chills Eyes: No Symptoms Ears, Nose, & Throat: No Symptoms Respiratory: No Cough, No Short Of Breath Cardiac: No Chest Pain, No Edema, No Syncope Abdominal/Gastrointestinal: Abdominal Pain, Nausea, Vomiting, No Diarrhea Genitourinary Symptoms: No Dysuria Musculoskeletal: No Back Pain, No Neck Pain Skin: No Rash Neurological: No Dizziness, No Focal Weakness, No Sensory Changes Psychological: No Symptoms Endocrine: No Symptoms Hematologic/Lymphatic: No Symptoms Immunological/Allergic: No Symptoms Medications & Allergies Home Medications: Home Medication List OLANZapine [Olanzapine] 20 mg PO HS 09/27/17 [History Confirmed 01/29/21] Pramipexole Di-HCl 0.5 mg [Mirapex 0.5 MG Tablet] 0.5 mg PO HS 09/27/17 [History Confirmed 01/29/21] Armodafinil [Nuvigil] 250 mg PO BID 09/28/17 [History Confirmed 01/29/21] Clonazepam [Klonopin] 2 mg PO QAM 09/28/17 [History Confirmed 01/29/21] Clonazepam [Klonopin] 4 mg PO HS 09/28/17 [History Confirmed 01/29/21] Venlafaxine HCl ER 75 mg [Effexor XR 75 MG] 300 mg PO DAILY 09/28/17 [History Confirmed 01/29/21] Allergies/Adverse Reactions: Allergies Allergy/AdvReac Type Severity Reaction Status Date / Time No Known Drug Allergies Allergy Verified 01/28/21 21:36 - Past Medical History Past Medical History: Yes Neurological History: Migraines ENT History: Macular Degeneration Cardiac History: Other Respiratory History: COPD, Pneumonia Endocrine Medical History: No Pertinent History Musculoskelatal History: No Pertinent History GI Medical History: No Pertinent History History: No Pertinent History Pyscho-Social History: Other Male Reproductive Disorders: No Pertinent History Comment: Schizoaffective Disorder, Bipolar, enlarged heart - Past Surgical History Past Surgical History: Yes Neuro Surgical History: No Pertinent History Cardiac History: No Pertinent History Respiratory Surgery: No Pertinent History GI Surgical History: Hernia Repair Genitourinary Surgical Hx: No Pertinent History Musculskeletal Surgical Hx: Orthopedic Surgery Male Surgical History: No Pertinent History Other Surgical History: HERNIA - Social History Smoking Status: Current every day smoker How long have you smoked: 30 Exposure to second hand smoke: Yes Alcohol: None Drug Use: none Significant Family History: heart disease - Physical Exam Vital Signs: Vital Signs - 24 hr Temp Pulse Resp BP Pulse Ox 01/29/21 11:16 78 16 107/64 94 L 01/29/21 08:09 104/60 01/29/21 08:00 88 L 01/29/21 07:45 98.5 F 80 16 92/53 91 L 01/29/21 04:00 98.4 F 77 16 104/57 92 L 01/29/21 02:14 98.1 F 81 18 121/68 96 01/29/21 01:52 98.1 F 81 18 121/68 96 01/29/21 01:48 81 18 96 01/29/21 01:42 96 01/29/21 01:07 79 20 110/70 95 01/29/21 00:05 71 18 116/72 95 01/28/21 23:05 82 24 112/72 95 01/28/21 22:37 85 18 109/66 94 L 01/28/21 21:14 93 H 22 141/83 96 General Appearance: no apparent distress, alert Neurologic Exam: alert, oriented x 3, cooperative, normal mood/affect, nml cerebellar function, nml station & gait, sensation nml, No motor deficits Eye Exam: PERRL/EOMI, eyes nml inspection Ears, Nose, Throat Exam: normal ENT inspection, TMs normal, pharynx normal, moist mucous membranes Neck Exam: normal inspection, non-tender, supple, full range of motion Respiratory Exam: normal breath sounds, lungs clear, No respiratory distress Cardiovascular Exam: regular rate/rhythm, normal heart sounds, normal peripheral pulses Gastrointestinal/Abdomen Exam: tenderness, guarding, No mass, No pulsatile mass Back Exam: normal inspection, normal range of motion, No CVA tenderness, No vertebral tenderness Extremity Exam: normal inspection, normal range of motion, pelvis stable Skin Exam: normal color, warm, dry, No rash Lymphatic Exam: No adenopathy Results - Labs Lab/Micro Results: Lab Results-Last 24 Hours 01/28/21 01/28/21 01/28/21 Range/Units 00:24 03:15 21:26 WBC (4.0-10.5) K/mm3 RBC (4.1-5.6) M/mm3 Hgb (12.5-18.0) gm/dl Hct (42-50) % MCV (78-100) fl MCH (26-32) pg MCHC (32-36) g/dl RDW (11.5-14.0) % Plt Count (150-450) K/mm3 MPV (7.5-11.0) fl Gran % (36.0-66.0) % Eos # (Auto) (0-0.5) Absolute Lymphs (auto) (1.0-4.6) Absolute Monos (auto) (0.0-1.3) Lymphocytes % (24.0-44.0) % Monocytes % (0.0-12.0) % Eosinophils % (0.00-5.0) % Basophils % (0.0-0.4) % Absolute Granulocytes (1.4-6.9) Basophils # (0-0.4) Sodium (137-145) mmol/L Potassium (3.5-5.1) mmol/L Chloride (98-107) mmol/L Carbon Dioxide (22-30) mmol/L Anion Gap (5-15) MEQ/L BUN (9-20) mg/dL Creatinine (0.66-1.25) mg/dL Estimated GFR ML/MIN Glucose (74-106) mg/dL Lactic Acid Cancelled 3.3 H Calcium (8.4-10.2) mg/dL Total Bilirubin (0.2-1.3) mg/dL AST (17-59) U/L ALT (0-50) U/L Alkaline Phosphatase (38-126) U/L Troponin I (0.000-0.034) ng/mL Serum Total Protein (6.3-8.2) g/dL Albumin (3.5-5.0) g/dL Amylase (30-110) U/L Lipase (23-300) U/L Urine Color YELLOW (YELLOW) Urine Appearance CLEAR (CLEAR) Urine pH 7.0 (5-6) Ur Specific [place] 1.012 (1.005-1.025) Urine Protein NEGATIVE (Negative) Urine Ketones NEGATIVE (NEGATIVE) Urine Blood NEGATIVE (0-5) Gelacio/ul Urine Nitrite NEGATIVE (NEGATIVE) Urine Bilirubin NEGATIVE (NEGATIVE) Urine Urobilinogen 4 (0-1) mg/dL Ur Leukocyte Esterase NEGATIVE (NEGATIVE) Urine WBC (Auto) NONE (0-5) /HPF Urine RBC (Auto) NONE (0-2) /HPF U Epithel Cells (Auto) NONE (FEW) /HPF Urine Bacteria (Auto) NONE (NEGATIVE) /HPF Urine Mucus (Auto) SLIGHT (NEGATIVE) /HPF Urine Culture Reflexed NO (NO) Urine Glucose NEGATIVE (NEGATIVE) mg/dL Influenza Type A Ag (NEGATIVE) Influenza Type B Ag (NEGATIVE) RSV (PCR) (Negative) SARS-CoV-2 (PCR) (NEGATIVE) 01/28/21 01/28/21 01/28/21 Range/Units 21:30 21:30 21:30 WBC 5.8 (4.0-10.5) K/mm3 RBC 4.41 (4.1-5.6) M/mm3 Hgb 15.0 (12.5-18.0) gm/dl Hct 44.2 (42-50) % MCV 100.2 H (78-100) fl MCH 34.0 H (26-32) pg MCHC 33.9 (32-36) g/dl RDW 13.9 (11.5-14.0) % Plt Count 190 (150-450) K/mm3 MPV 9.1 (7.5-11.0) fl Gran % 63.9 (36.0-66.0) % Eos # (Auto) 0.14 (0-0.5) Absolute Lymphs (auto) 1.22 (1.0-4.6) Absolute Monos (auto) 0.71 (0.0-1.3) Lymphocytes % 21.2 L (24.0-44.0) % Monocytes % 12.3 H (0.0-12.0) % Eosinophils % 2.4 (0.00-5.0) % Basophils % 0.2 (0.0-0.4) % Absolute Granulocytes 3.68 (1.4-6.9) Basophils # 0.01 (0-0.4) Sodium 131 L (137-145) mmol/L Potassium 4.0 (3.5-5.1) mmol/L Chloride 101 (98-107) mmol/L Carbon Dioxide 23 (22-30) mmol/L Anion Gap 11.5 (5-15) MEQ/L BUN 11 (9-20) mg/dL Creatinine 1.12 (0.66-1.25) mg/dL Estimated GFR > 60.0 ML/MIN Glucose 98 (74-106) mg/dL Lactic Acid Calcium 8.3 L (8.4-10.2) mg/dL Total Bilirubin 0.90 (0.2-1.3) mg/dL AST 174 H (17-59) U/L ALT 352 H (0-50) U/L Alkaline Phosphatase 266 H (38-126) U/L Troponin I < 0.012 (0.000-0.034) ng/mL Serum Total Protein 6.6 (6.3-8.2) g/dL Albumin 3.9 (3.5-5.0) g/dL Amylase 49 (30-110) U/L Lipase 120 (23-300) U/L Urine Color (YELLOW) Urine Appearance (CLEAR) Urine pH (5-6) Ur Specific [place] (1.005-1.025) Urine Protein (Negative) Urine Ketones (NEGATIVE) Urine Blood (0-5) Gelacio/ul Urine Nitrite (NEGATIVE) Urine Bilirubin (NEGATIVE) Urine Urobilinogen (0-1) mg/dL Ur Leukocyte Esterase (NEGATIVE) Urine WBC (Auto) (0-5) /HPF Urine RBC (Auto) (0-2) /HPF U Epithel Cells (Auto) (FEW) /HPF Urine Bacteria (Auto) (NEGATIVE) /HPF Urine Mucus (Auto) (NEGATIVE) /HPF Urine Culture Reflexed (NO) Urine Glucose (NEGATIVE) mg/dL Influenza Type A Ag (NEGATIVE) Influenza Type B Ag (NEGATIVE) RSV (PCR) (Negative) SARS-CoV-2 (PCR) (NEGATIVE) 01/29/21 01/29/21 01/29/21 Range/Units 00:00 00:24 04:00 WBC 4.7 (4.0-10.5) K/mm3 RBC 4.03 L (4.1-5.6) M/mm3 Hgb 13.7 (12.5-18.0) gm/dl Hct 41.6 L (42-50) % MCV 103.2 H (78-100) fl MCH 34.0 H (26-32) pg MCHC 32.9 (32-36) g/dl RDW 14.1 H (11.5-14.0) % Plt Count 158 (150-450) K/mm3 MPV 8.8 (7.5-11.0) fl Gran % 54.9 (36.0-66.0) % Eos # (Auto) 0.17 (0-0.5) Absolute Lymphs (auto) 1.41 (1.0-4.6) Absolute Monos (auto) 0.52 (0.0-1.3) Lymphocytes % 30.2 (24.0-44.0) % Monocytes % 11.1 (0.0-12.0) % Eosinophils % 3.6 (0.00-5.0) % Basophils % 0.2 (0.0-0.4) % Absolute Granulocytes 2.56 (1.4-6.9) Basophils # 0.01 (0-0.4) Sodium (137-145) mmol/L Potassium (3.5-5.1) mmol/L Chloride (98-107) mmol/L Carbon Dioxide (22-30) mmol/L Anion Gap (5-15) MEQ/L BUN (9-20) mg/dL Creatinine (0.66-1.25) mg/dL Estimated GFR ML/MIN Glucose (74-106) mg/dL Lactic Acid 0.6 Calcium (8.4-10.2) mg/dL Total Bilirubin (0.2-1.3) mg/dL AST (17-59) U/L ALT (0-50) U/L Alkaline Phosphatase (38-126) U/L Troponin I (0.000-0.034) ng/mL Serum Total Protein (6.3-8.2) g/dL Albumin (3.5-5.0) g/dL Amylase (30-110) U/L Lipase (23-300) U/L Urine Color (YELLOW) Urine Appearance (CLEAR) Urine pH (5-6) Ur Specific [place] (1.005-1.025) Urine Protein (Negative) Urine Ketones (NEGATIVE) Urine Blood (0-5) Gelacio/ul Urine Nitrite (NEGATIVE) Urine Bilirubin (NEGATIVE) Urine Urobilinogen (0-1) mg/dL Ur Leukocyte Esterase (NEGATIVE) Urine WBC (Auto) (0-5) /HPF Urine RBC (Auto) (0-2) /HPF U Epithel Cells (Auto) (FEW) /HPF Urine Bacteria (Auto) (NEGATIVE) /HPF Urine Mucus (Auto) (NEGATIVE) /HPF Urine Culture Reflexed (NO) Urine Glucose (NEGATIVE) mg/dL Influenza Type A Ag NEGATIVE (NEGATIVE) Influenza Type B Ag NEGATIVE (NEGATIVE) RSV (PCR) NEGATIVE (Negative) SARS-CoV-2 (PCR) NEGATIVE (NEGATIVE) 01/29/21 01/29/21 Range/Units 04:00 04:00 WBC (4.0-10.5) K/mm3 RBC (4.1-5.6) M/mm3 Hgb (12.5-18.0) gm/dl Hct (42-50) % MCV (78-100) fl MCH (26-32) pg MCHC (32-36) g/dl RDW (11.5-14.0) % Plt Count (150-450) K/mm3 MPV (7.5-11.0) fl Gran % (36.0-66.0) % Eos # (Auto) (0-0.5) Absolute Lymphs (auto) (1.0-4.6) Absolute Monos (auto) (0.0-1.3) Lymphocytes % (24.0-44.0) % Monocytes % (0.0-12.0) % Eosinophils % (0.00-5.0) % Basophils % (0.0-0.4) % Absolute Granulocytes (1.4-6.9) Basophils # (0-0.4) Sodium 133 L (137-145) mmol/L Potassium 4.3 (3.5-5.1) mmol/L Chloride 101 (98-107) mmol/L Carbon Dioxide 28 (22-30) mmol/L Anion Gap 8.2 (5-15) MEQ/L BUN 9 (9-20) mg/dL Creatinine 0.74 (0.66-1.25) mg/dL Estimated GFR > 60.0 ML/MIN Glucose 84 (74-106) mg/dL Lactic Acid Calcium 7.9 L (8.4-10.2) mg/dL Total Bilirubin 0.40 (0.2-1.3) mg/dL AST 109 H (17-59) U/L ALT 294 H (0-50) U/L Alkaline Phosphatase 242 H (38-126) U/L Troponin I (0.000-0.034) ng/mL Serum Total Protein 5.7 L (6.3-8.2) g/dL Albumin 3.3 L (3.5-5.0) g/dL Amylase 52 (30-110) U/L Lipase 295 (23-300) U/L Urine Color (YELLOW) Urine Appearance (CLEAR) Urine pH (5-6) Ur Specific [place] (1.005-1.025) Urine Protein (Negative) Urine Ketones (NEGATIVE) Urine Blood (0-5) Gelacio/ul Urine Nitrite (NEGATIVE) Urine Bilirubin (NEGATIVE) Urine Urobilinogen (0-1) mg/dL Ur Leukocyte Esterase (NEGATIVE) Urine WBC (Auto) (0-5) /HPF Urine RBC (Auto) (0-2) /HPF U Epithel Cells (Auto) (FEW) /HPF Urine Bacteria (Auto) (NEGATIVE) /HPF Urine Mucus (Auto) (NEGATIVE) /HPF Urine Culture Reflexed (NO) Urine Glucose (NEGATIVE) mg/dL Influenza Type A Ag (NEGATIVE) Influenza Type B Ag (NEGATIVE) RSV (PCR) (Negative) SARS-CoV-2 (PCR) (NEGATIVE) - Radiology Impressions Radiology Exams & Impressions: Radiology Procedures Category Date Time Status ABDOMEN AND PELVIS W/0 CONTRAS [CT] Stat Exams 01/28/21 21:26 Completed MRI ABD W/O CONTRAST [MRI] Routine Exams 01/29/21 09:18 Ordered Ultrasound Gallbladder [GALLBLADDER] [US] Urgent Exams 01/29/21 10:[address]/ABDOMEN AND PELVIS W/0 CONTRAS Indication: Abdomen pain, nausea, and elevated liver enzymes. Multiple contiguous axial images obtained through the abdomen and pelvis without contrast. Comparison: There are multiple priors, most recent January 08, 2020. Lung bases remain hyperinflated with scattered subsegmental atelectasis/scarring. No infiltrate or effusion. Heart is not enlarged. Stable moderate-sized paraesophageal hiatal hernia. Stomach is distended with food/fluid. Noncontrasted stomach and bowel loops nonobstructed again with normal-appearing appendix. There is increasing mild diffuse scattered colonic fecal debris throughout. No free fluid/air. Gallbladder distended with interval enlarging 1.4 cm stone. No abnormal biliary distention. Stable nonobstructing left renal punctate calculus. Remaining liver, pancreas, spleen, adrenal glands, kidneys, ureters, and bladder are unremarkable for noncontrast exam. Stable mild scattered aortoiliac calcifications without AAA. Osseous structures demonstrates new T12 compression fracture with kyphoplasty. There remains mild multilevel thoracolumbar degenerative spondylosis, mild lumbar levoscoliosis, and old bilateral lower rib fractures. Impression: 1. Distended gallbladder with interval enlarging gallstone. Gallbladder sonogram may yield further information. 2. Worsening diffuse fecal stasis. 3. Again incidental paraesophageal hiatal hernia, nonobstructing left renal punctate calculus, and chronic bony findings. US/GALLBLADDER Indication: Abdomen pain. Cholecystitis. Two-dimensional gallbladder sonogram performed. Comparison: None Pancreas obscured due to overlying bowel gas. Gallbladder normally distended with multiple gallstones, largest 2 cm. Also abnormal gallbladder wall thickening up to 4 mm and tiny gallbladder wall echodensities with common tail artifact favoring adenomyomatosis. No pericholecystic fluid. Common bile duct measures 2.1 mm. Remaining visualized liver and right kidney sonographically unremarkable. Right kidney measures 10 cm in length. No ascites. Impression: 1. Nonvisualization pancreas. 2. Cholelithiasis. Also abnormal gallbladder wall thickening with sonographic features favoring adenomyomatosis. - Other Procedures and Tests Respiratory Therapy 01/29/21 02:01 Oxygen Nasal Cannula 3 lpm Respiratory Therapy Assessment DAILY Assessment/Plan (1) Acute calculous cholecystitis Current Visit: Yes Status: Acute Assessment & Plan: Chief Complaint Diagnosis abd pain Allergies Allergy/AdvReac Type Severity Reaction Status Date / Time No Known Drug Allergies Allergy Verified 01/28/21 21:36 Vital Signs (Last 24 hours) Temp Pulse Resp BP Pulse Ox 01/29/21 11:16 78 16 107/64 94 L 01/29/21 08:09 104/60 01/29/21 08:00 88 L 01/29/21 07:45 98.5 F 80 16 92/53 91 L 01/29/21 04:00 98.4 F 77 16 104/57 92 L 01/29/21 02:14 98.1 F 81 18 121/68 96 01/29/21 01:52 98.1 F 81 18 121/68 96 01/29/21 01:48 81 18 96 01/29/21 01:42 96 01/29/21 01:07 79 20 110/70 95 01/29/21 00:05 71 18 116/72 95 01/28/21 23:05 82 24 112/72 95 01/28/21 22:37 85 18 109/66 94 L 01/28/21 21:14 93 H 22 141/83 96 Current Medications Generic Name Dose Route Start Last Admin Trade Name Freq PRN Reason Stop Dose Admin Clonazepam 2 mg 01/29/21 10:00 01/29/21 10:35 Klonopin PO 02/28/21 09:59 2 mg DAILY LISA Administration Clonazepam 4 mg 01/29/21 22:00 Klonopin PO 02/28/21 21:59 HS LISA Sodium Chloride 1,000 mls @ 100 mls/hr 01/29/21 01:42 01/29/21 03:17 Sodium Chloride 0.9% 1000 Ml IV 02/28/21 01:41 100 mls/hr .Q10H LISA Administration Meperidine HCl 50 mg 01/29/21 01:42 01/29/21 08:10 Demerol 50 Mg IV 02/03/21 01:41 50 mg Q6H PRN PRN Administration PAIN Miscellaneous Information 1 each 01/29/21 09:45 Medication Intervention PO 02/28/21 09:44 .RN TO CHECK ON LISA Nicotine 21 mg 01/29/21 03:00 01/29/21 03:16 Nicoderm Cq 21 Mg TOP 02/28/21 02:59 21 mg Q24H LISA Administration Olanzapine 20 mg 01/29/21 22:00 Zyprexa 5mg Tablet PO 02/28/21 21:59 HS LISA Ondansetron HCl 4 mg 01/29/21 01:42 Zofran 4 Mg/2 Ml Vial IV 02/28/21 01:41 Q6H PRN PRN NAUSEA/VOMITING Pramipexole Dihydrochloride 0.5 mg 01/29/21 22:00 Mirapex 0.5 Mg Tablet PO 02/28/21 21:59 HS LISA Venlafaxine HCl 300 mg 01/29/21 10:00 01/29/21 10:35 Effexor Xr 75 Mg PO 02/28/21 09:59 300 mg DAILY LISA Administration Discontinued Medications Generic Name Dose Route Start Last Admin Trade Name Freq PRN Reason Stop Dose Admin Sodium Chloride 1,000 mls @ 999 mls/hr 01/28/21 21:26 01/28/21 22:50 Sodium Chloride 0.9% 1000 Ml IV 01/28/21 22:26 Infused .Q1H1M STA Infusion Sodium Chloride Confirm 01/28/21 21:31 Sodium Chloride 0.9% 1000 Ml Administered 01/28/21 21:32 Dose 1,000 mls @ ud .ROUTE .STK-MED ONE Levofloxacin/Dextrose 500 mg in 100 mls @ 100 mls/hr 01/28/21 23:57 01/29/21 01:30 Levofloxacin 500mg/100ml D5w IV 01/29/21 00:56 Infused STAT STA Infusion Levofloxacin/Dextrose Confirm 01/29/21 00:05 Levofloxacin 500mg/100ml D5w Administered 01/29/21 00:06 Dose 500 mg in 100 mls @ ud IV .STK-MED ONE Meperidine HCl 50 mg 01/28/21 21:28 01/28/21 21:35 Demerol 50 Mg IV 01/28/21 21:29 50 mg STAT ONE Administration Meperidine HCl Confirm 01/28/21 21:31 Demerol 50 Mg Administered 01/28/21 21:32 Dose 50 mg .ROUTE .STK-MED ONE Meperidine HCl 50 mg 01/28/21 23:14 01/28/21 23:18 Demerol 50 Mg IV 01/28/21 23:15 50 mg STAT ONE Administration Meperidine HCl Confirm 01/28/21 23:16 Demerol 50 Mg Administered 01/28/21 23:17 Dose 50 mg .ROUTE .STK-MED ONE Ondansetron HCl 4 mg 01/28/21 21:26 01/28/21 21:35 Zofran 4 Mg/2 Ml Vial IV 01/28/21 21:27 4 mg STAT ONE Administration Ondansetron HCl Confirm 01/28/21 21:31 Zofran 4 Mg/2 Ml Vial Administered 01/28/21 21:32 Dose 4 mg .ROUTE .STK-MED ONE Intake & Output (Last 24 hours) 01/27/21 01/28/21 01/29/21 01/30/21 11:59 11:59 11:59 11:59 Intake Total 0 Output Total 600 Balance -600 Weight 85.4 kg Laboratory Results (Last 24 hours) 01/29/21 01/29/21 01/29/21 04:00 04:00 04:00 WBC 4.7 RBC 4.03 L Hgb 13.7 Hct 41.6 L MCV 103.2 H MCH 34.0 H MCHC 32.9 RDW 14.1 H Plt Count 158 MPV 8.8 Gran % 54.9 Eos # (Auto) 0.17 Absolute Lymphs (auto) 1.41 Absolute Monos (auto) 0.52 Lymphocytes % 30.2 Monocytes % 11.1 Eosinophils % 3.6 Basophils % 0.2 Absolute Granulocytes 2.56 Basophils # 0.01 Sodium 133 L Potassium 4.3 Chloride 101 Carbon Dioxide 28 Anion Gap 8.2 BUN 9 Creatinine 0.74 Estimated GFR > 60.0 Glucose 84 Lactic Acid Calcium 7.9 L Total Bilirubin 0.40 AST 109 H ALT 294 H Alkaline Phosphatase 242 H Troponin I Serum Total Protein 5.7 L Albumin 3.3 L Amylase 52 Lipase 295 Urine Color Urine Appearance Urine pH Ur Specific [place] Urine Protein Urine Ketones Urine Blood Urine Nitrite Urine Bilirubin Urine Urobilinogen Ur Leukocyte Esterase Urine WBC (Auto) Urine RBC (Auto) U Epithel Cells (Auto) Urine Bacteria (Auto) Urine Mucus (Auto) Urine Culture Reflexed Urine Glucose Influenza Type A Ag Influenza Type B Ag RSV (PCR) SARS-CoV-2 (PCR) 01/29/21 01/29/21 01/28/21 00:24 00:00 21:30 WBC RBC Hgb Hct MCV MCH MCHC RDW Plt Count MPV Gran % Eos # (Auto) Absolute Lymphs (auto) Absolute Monos (auto) Lymphocytes % Monocytes % Eosinophils % Basophils % Absolute Granulocytes Basophils # Sodium Potassium Chloride Carbon Dioxide Anion Gap BUN Creatinine Estimated GFR Glucose Lactic Acid 0.6 Calcium Total Bilirubin AST ALT Alkaline Phosphatase Troponin I < 0.012 Serum Total Protein Albumin Amylase Lipase Urine Color Urine Appearance Urine pH Ur Specific [place] Urine Protein Urine Ketones Urine Blood Urine Nitrite Urine Bilirubin Urine Urobilinogen Ur Leukocyte Esterase Urine WBC (Auto) Urine RBC (Auto) U Epithel Cells (Auto) Urine Bacteria (Auto) Urine Mucus (Auto) Urine Culture Reflexed Urine Glucose Influenza Type A Ag NEGATIVE Influenza Type B Ag NEGATIVE RSV (PCR) NEGATIVE SARS-CoV-2 (PCR) NEGATIVE 01/28/21 01/28/21 01/28/21 21:30 21:30 21:26 WBC 5.8 RBC 4.41 Hgb 15.0 Hct 44.2 MCV 100.2 H MCH 34.0 H MCHC 33.9 RDW 13.9 Plt Count 190 MPV 9.1 Gran % 63.9 Eos # (Auto) 0.14 Absolute Lymphs (auto) 1.22 Absolute Monos (auto) 0.71 Lymphocytes % 21.2 L Monocytes % 12.3 H Eosinophils % 2.4 Basophils % 0.2 Absolute Granulocytes 3.68 Basophils # 0.01 Sodium 131 L Potassium 4.0 Chloride 101 Carbon Dioxide 23 Anion Gap 11.5 BUN 11 Creatinine 1.12 Estimated GFR > 60.0 Glucose 98 Lactic Acid 3.3 H Calcium 8.3 L Total Bilirubin 0.90 AST 174 H ALT 352 H Alkaline Phosphatase 266 H Troponin I Serum Total Protein 6.6 Albumin 3.9 Amylase 49 Lipase 120 Urine Color Urine Appearance Urine pH Ur Specific [place] Urine Protein Urine Ketones Urine Blood Urine Nitrite Urine Bilirubin Urine Urobilinogen Ur Leukocyte Esterase Urine WBC (Auto) Urine RBC (Auto) U Epithel Cells (Auto) Urine Bacteria (Auto) Urine Mucus (Auto) Urine Culture Reflexed Urine Glucose Influenza Type A Ag Influenza Type B Ag RSV (PCR) SARS-CoV-2 (PCR) 01/28/21 01/28/21 03:15 00:24 WBC RBC Hgb Hct MCV MCH MCHC RDW Plt Count MPV Gran % Eos # (Auto) Absolute Lymphs (auto) Absolute Monos (auto) Lymphocytes % Monocytes % Eosinophils % Basophils % Absolute Granulocytes Basophils # Sodium Potassium Chloride Carbon Dioxide Anion Gap BUN Creatinine Estimated GFR Glucose Lactic Acid Cancelled Calcium Total Bilirubin AST ALT Alkaline Phosphatase Troponin I Serum Total Protein Albumin Amylase Lipase Urine Color YELLOW Urine Appearance CLEAR Urine pH 7.0 Ur Specific [place] 1.012 Urine Protein NEGATIVE Urine Ketones NEGATIVE Urine Blood NEGATIVE Urine Nitrite NEGATIVE Urine Bilirubin NEGATIVE Urine Urobilinogen 4 Ur Leukocyte Esterase NEGATIVE Urine WBC (Auto) NONE Urine RBC (Auto) NONE U Epithel Cells (Auto) NONE Urine Bacteria (Auto) NONE Urine Mucus (Auto) SLIGHT Urine Culture Reflexed NO Urine Glucose NEGATIVE Influenza Type A Ag Influenza Type B Ag RSV (PCR) SARS-CoV-2 (PCR) Orders (Last 24 hours) Category Date Time Status Code Status Order ROUTINE Care 01/29/21 01:42 Active EKG-ER Only STAT Care 01/28/21 21:29 Completed IV Insertion STAT Care 01/28/21 21:26 Completed Oxygen-ED Only Nasal Cannula 2 lpm Care 01/28/21 21:[address] in Observation ROUTINE Care 01/29/21 01:42 Active Consult Surgery ROUTINE Cons 01/29/21 01:42 Active NPO Diet 01/29/21 01:42 Active ABDOMEN AND PELVIS W/0 CONTRAS [CT] Stat Exams 01/28/21 21:26 Completed MRI ABD W/O CONTRAST [MRI] Routine Exams 01/29/21 09:18 Ordered Ultrasound Gallbladder [GALLBLADDER] [US] Urgent Exams 01/29/21 10:39 Completed AMYLASE Stat Lab 01/28/21 21:30 Completed AMYLASE Stat Lab 01/29/21 04:00 Completed CBC W DIFF AM.LAB Lab 01/29/21 04:00 Completed CBC W DIFF Stat Lab 01/28/21 21:30 Completed CMP AM.LAB Lab 01/29/21 04:00 Completed CMP Stat Lab 01/28/21 21:30 Completed LIPASE Stat Lab 01/28/21 21:30 Completed LIPASE Stat Lab 01/29/21 04:00 Completed Lactic Acid Stat Lab 01/28/21 21:26 Completed Lactic Acid Stat Lab 01/29/21 00:24 Completed TROPONIN Q3H Lab 01/28/21 21:30 Completed Clonazepam [Klonopin] Med 01/29/21 10:00 Active 2 mg PO DAILY Clonazepam [Klonopin] Med 01/29/21 22:00 Active 4 mg PO HS Levofloxacin [Levofloxacin 500MG/100ML D5W] Med 01/28/21 23:57 Discontinued 500 mg in 100 ml IV STAT Levofloxacin [Levofloxacin 500MG/100ML D5W] Med 01/29/21 00:05 Discontinued 500 mg in 100 ml IV UD Medication Intervention Med 01/29/21 09:45 Active 1 each PO .RN TO CHECK ON Meperidine HCl 50 mg [Demerol 50 mg] Med 01/28/21 21:31 Discontinued 50 mg .ROUTE .STK-MED ONE Meperidine HCl 50 mg [Demerol 50 mg] Med 01/28/21 23:16 Discontinued 50 mg .ROUTE .STK-MED ONE Meperidine HCl 50 mg [Demerol 50 mg] Med 01/29/21 01:42 Active 50 mg IV Q6H PRN PRN Meperidine HCl 50 mg [Demerol 50 mg] Med 01/28/21 21:28 Discontinued 50 mg IV STAT ONE Meperidine HCl 50 mg [Demerol 50 mg] Med 01/28/21 23:14 Discontinued 50 mg IV STAT ONE NaCl 0.9% 1000 ml [Sodium Chloride 0.9% 1000 ML] 1,000 Med 01/28/21 21:31 Discontinued ml .ROUTE UD NaCl 0.9% 1000 ml [Sodium Chloride 0.9% 1000 ML] 1,000 Med 01/29/21 01:42 Active ml IV 100 mls/hr NaCl 0.9% 1000 ml [Sodium Chloride 0.9% 1000 ML] 1,000 Med 01/28/21 21:26 Discontinued ml IV 999 mls/hr Nicotine 21 mg [Nicoderm CQ 21 MG] Med 01/29/21 03:00 Active 21 mg TOP Q24H Olanzapine 5 mg [zyPREXA 5MG TABLET] Med 01/29/21 22:00 Active 20 mg PO HS Ondansetron HCl 4 mg/2 ml [Zofran 4 MG/2 ML VIAL] Med 01/28/21 21:31 Discontinued 4 mg .ROUTE .STK-MED ONE Ondansetron HCl 4 mg/2 ml [Zofran 4 MG/2 ML VIAL] Med 01/29/21 01:42 Active 4 mg IV Q6H PRN PRN Ondansetron HCl 4 mg/2 ml [Zofran 4 MG/2 ML VIAL] Med 01/28/21 21:26 Discontinued 4 mg IV STAT ONE Pramipexole Di-HCl 0.5 mg [Mirapex 0.5 MG Tablet] Med 01/29/21 22:00 Active 0.5 mg PO HS Venlafaxine HCl ER 75 mg [Effexor XR 75 MG] Med 01/29/21 10:00 Active 300 mg PO DAILY Oxygen Nasal Cannula 3 lpm RT 01/29/21 02:01 Active Pulse Oximetry ROUTINE RT 01/29/21 01:42 Active Respiratory Therapy Assessment DAILY RT 01/29/21 02:01 Active Patient Care Notes (Last 24 hours) 01/29/21 09:43 Nursing Note by Ceci Murray Spoke with Dr. Zhao's nurse Julia and let her know patient would have MRCP and ultrasound of the gallbladder today here at [facility]. Stated she would relay message to Dr. Zhao. Initialized on 01/29/21 09:43 - END OF NOTE Code(s): K80.00 - CALCULUS OF GALLBLADDER W ACUTE CHOLECYST W/O OBSTRUCTION (2) Abdominal pain Current Visit: No Status: Acute Code(s): R10.9 - UNSPECIFIED ABDOMINAL PAIN
--- NOTE | 2021-01-29 12:18 | XRAY ---
Indication: Abdomen pain. Parkinson's disease. Conventional MRCP was performed. Comparison: None Exam is mildly degraded by respiration/motion artifact. Gallbladder appears moderately distended with tiny gallstones in the dependent portion. Visualized intra and extrahepatic biliary tree is normal in course and caliber without focal stricture, obstruction, or filling defect. Normal biliary emptying into the second portion of the duodenum. Pancreatic duct is not abnormally distended. Right kidney demonstrates a 6 mm mid pole cortical cyst posteriorly. Remaining visualized liver, pancreas, spleen, adrenal glands, kidneys, and aorta are unremarkable. Visualized stomach and bowel loops appear nonobstructed. No abnormal bone marrow signal. Impression: 1. Respiration/motion artifact. 2. Cholelithiasis further detailed on same day gallbladder sonogram. 3. Incidental tiny right renal cortical cyst. 4. Remaining MRCP is grossly negative.
[2021-01-29] MEDS: Nicoderm CQ 21 MG TOP SCH (14:21)
[2021-01-29] MEDS ORDERED: MEFOXIN 2 GM PREMIX** 2 GM/50 ML ML IV SCH (17:00)
[2021-01-29] MEDS ORDERED: Lactated Ringers 1,000 ML IV SCH (17:00)
[2021-01-29] MEDS ORDERED: Lactated Ringers 1,000 ML IV ONE (17:39)
[2021-01-29] MEDS ORDERED: Sensorcaine 0.25% 10 ML ONE (17:39)
[2021-01-29] MEDS ORDERED: DIPRIVAN 200 MG/20 ML IV ONE (18:02)
[2021-01-29] MEDS ORDERED: Zemuron 100 MG/10 ML ONE (18:02)
[2021-01-29] MEDS ORDERED: SUBLIMAZE 250 MCG/5 ML ONE (18:02)
[2021-01-29] MEDS ORDERED: Versed 2 MG/2 ML Injection ONE (18:02)
[2021-01-29] MEDS ORDERED: Ephedrine Sulfate 50 MG/ML ONE (18:18)
[2021-01-29] MEDS ORDERED: BRIDION 200MG/2ML IV ONE (19:27)
[2021-01-29] MEDS: zyPREXA 5MG TABLET PO SCH (22:38)
[2021-01-29] MEDS: Mirapex 0.5 MG Tablet PO SCH (22:39)
[2021-01-29] MEDS: Zosyn 3.375 GM Vial 3.375 GM in Sodium Chloride 100ML MINI-BAG PLUS 100 ML IV SCH ×2 (23:36→23:49)
[2021-01-29] MEDS ORDERED: Zosyn 3.375 GM Vial IV ONE (23:44)
[2021-01-29] MEDS ORDERED: Sodium Chloride 100ML MINI-BAG PLUS 100 ML IV ONE (23:46)
[2021-01-30] MEDS: Zosyn 3.375 GM Vial 3.375 GM in Sodium Chloride 100ML MINI-BAG PLUS 100 ML IV SCH ×6 (01:41→22:56)
[2021-01-30] MEDS: DEMEROL 50 MG IV PRN (02:43)
[2021-01-30] MEDS ORDERED: Zosyn 3.375 GM Vial IV ONE (05:29)
[2021-01-30] MEDS ORDERED: Sodium Chloride 100ML MINI-BAG PLUS 100 ML IV ONE (05:30)
[2021-01-30 06:03] LABS: Hematocrit 38.4 % (42-50); Mean Cell Volume 102.9 fl (78-100); Mean Corpuscular Hemoglobin 34.9 pg (26-32); Mean Corpuscular Hgb Concent. 33.9 g/dl (32-36); Platelet Count 147 K/mm3 (150-450); Red Blood Count 3.73 M/mm3 (4.1-5.6); Red Cell Distribution Width 14.2 % (11.5-14.0); White Blood Count 6.8 K/mm3 (4.0-10.5)
[2021-01-30 06:30] LABS: ALBUMIN 3.1 g/dL (3.5-5.0); BILIRUBIN,TOTAL 0.5 mg/dL (0.2-1.3); Direct Bilirubin 0.2 mg/dL (0.0-0.4); Total Protein 5.4 g/dL (6.3-8.2)
[2021-01-30] MEDS ORDERED: NORCO 5/325 MG PO PRN (07:18)
[2021-01-30] MEDS: MORPHINE SULFATE 4 MG INJ IV PRN ×3 (07:42→22:57)
--- NOTE | 2021-01-30 08:54 | CONS ---
CONSULT DATE: 01/29/2021 HISTORY: A 65 year-old gentleman had mid to right upper quadrant pain over the past three or four days at least. It actually started longer than that. Nausea. No vomiting. No diarrhea. PAST MEDICAL HSITORY: He has had chronic back pain. He has chronic obstructive pulmonary disease, migraines, schizoaffective and bipolar disorder. He had some migraines as well and some reflux. PAST SURGICAL HISTORY: Initially the staff had told me he only had inguinal hernia and he now says he has hiatal hernia repair he said through a back incision. He does have some small scars on his abdomen but he is not sure what they are. MEDICATIONS: At home include: Pramipexole, olanzapine, Nuvigil, Klonopin, Effexor. ALLERGIES: NKDA. FAMILY HISTORY: Heart disease. SOCIAL HISTORY: Smoker. LAB DATA AND TESTS: White count 5.8, hemoglobin 15. His total bilirubin 0.4. He denies any known history of hepatitis. He does have a little bit elevated AST and ALT. His lipase is normal. His gallbladder appeared distended with tiny gallstones. He has no obvious intra or extrahepatic dilatation on MRCP and normal emptying into the second portion of the duodenum. REVIEW OF SYSTEMS: Fourteen systems reviewed pertinent for as noted above. No chest pain or palpitations other systems negative or noncontributory as above and per preadmission assessment. PHYSICAL EXAMINATION: GENERAL: No acute distress. HEENT: Sclera nonicteric. NECK: No JVD. CHEST: Equal excursion, nonlabored breathing. CVS: Regular rhythm. ABDOMEN: Soft, some mild tenderness epigastrium and right abdomen. No peritoneal signs. EXTREMITIES: No significant edema. He does have some little scars on his abdomen. He is not sure what they are from. NEURO: Alert, moving extremities symmetrically. PSYCH: Appropriate mood and affect. IMPRESSION: Upper abdominal pain, nausea. CT and ultrasound findings suggest acute exacerbation of chronic cholecystitis/cholelithiasis. MRCP does not show any obvious duct obstruction. I feel he can proceed with cholecystectomy laparoscopic possible open. Risks and benefits explained in detail including but not limited to bleeding or infection, risk of trocar injury or hernia, risk bowel, bladder or blood vessel injury, risk of bile leak, bile duct injury, retained stone or sludge possibly requiring further procedure either open or ERCP, general risk of anesthesia, deep venous thrombosis, pulmonary embolism, pneumonia, perioperative risk of aches, pains, bloating, constipation and/or loose stools possibly chronic in nature. He understands possible need for open procedure as well as hospital stay, aches and pains, risk of wound complications or hernia but not limited to. At this time will proceed with laparoscopic cholecystectomy possible open when OR time available.
[2021-01-30] MEDS: KLONOPIN PO SCH ×2 (09:19→22:55)
[2021-01-30] MEDS: Effexor XR 75 MG PO SCH (09:19)
[2021-01-30] MEDS: Nicoderm CQ 21 MG TOP SCH (09:19)
--- NOTE | 2021-01-30 09:19 | OP ---
SURGERY DATE/TIME: 01/29/2021 1800 PREOPERATIVE DIAGNOSIS: Acute exacerbation of chronic cholecystitis, symptomatic cholelithiasis POSTOPERATIVE DIAGNOSIS: Acute cholecystitis/cholelithiasis. PROCEDURE: Laparoscopic cholecystectomy. SURGEON: Dr. Suresh Zhao. ANESTHESIA: General. ESTIMATED BLOOD LOSS: Minimal. INDICATIONS: As noted above. Risks and benefits explained in detail but not limited to and consent obtained. DESCRIPTION OF PROCEDURE AND FINDINGS: The patient was taken to the operating room. General anesthesia induced. Abdomen prepped and draped in the usual sterile fashion. After official time out and no disagreement with planned procedure, a transverse incision made at the supraumbilical area. Fascia grasped and pulled upward. Veress needle inserted and tested with saline. Pneumoperitoneum accomplished insufflating opening pressure of 0-15. A 5 mm bladeless port and camera inserted without difficulty followed by two - 5 mm right upper quadrant ports and 11 mm epigastric port later switched to 12 mm port. The gallbladder was quite distended, tense and edematous consistent with acute cholecysitis. Dissecting posterior, lateral to anterior fashion slowly and carefully cystic duct and infundibular junction slowly and carefully well skeletonized until the critical view obtained anteriorly and posteriorly. The cystic duct was a little bit patulous. I thought it would be a better secure closure with large clip robotic welding operator. Therefore the 12 port was replaced and the 12 clipper was then used with a secure closure. The gallbladder side was more distended so the Endo IVONE stapler was used on that side. The cystic artery controlled with a regular Ligaclip. Gallbladder slowly and carefully dissected free from its dense attachment to liver bed staying directly on the gallbladder wall clipping additional oozing side branches off the cystic artery and cystic veins directly on the gallbladder wall as necessary. Just prior to releasing from final attachments to the anterior edge of the liver, the liver bed re-inspected. Clips noted in place in cystic duct and cystic artery stump. No signs of any active bleeding or bile leakage. Given the extensive inflammation, it was felt that he would benefit from drain placement. Gallbladder released from final attachments to anterior edge of the liver, placed in the provided sac pulled up. It was opened outside of the abdomen, decompressed. Multiple small to medium sized stones carefully removed allowing the gallbladder to be pulled free and passed off. The fascial defect closed with puncture closure device with #1 Vicryl. Copious amount of irrigation accomplished lateral to the liver and subhepatic space irrigating until clear. HAREVY drain placed in the subhepatic space out the lateral port incision and secured with PDS suture and placed to bulb suction. Copious amount of irrigation irrigating until clear. Pneumoperitoneum decompressed. The wound irrigated out. Skin incision closed with 4-0 Vicryl. Steri-Strips and sterile dressing applied. 0.25% Marcaine local injected along the skin incision fascial defect. The patient tolerated the procedure well. There were no immediate complications. There was no family to discuss the findings with.
[2021-01-30] MEDS: Sodium Chloride 0.9% 1000 ML 1,000 ML IV SCH (09:23)
[2021-01-30] MEDS: PATIENT OWN MEDICATION PO SCH ×2 (10:19→22:56)
--- NOTE | 2021-01-30 11:34 | PCM.NOTE ---
Date and Time: 01/30/21 1133 Subjective Assessment: doing ok - Review of Systems Constitutional: No Fever, No Chills Eyes: No Symptoms Ears, Nose, & Throat: No Symptoms Respiratory: No Cough, No Short Of Breath Cardiac: No Chest Pain, No Edema, No Syncope Abdominal/Gastrointestinal: No Abdominal Pain, No Nausea, No Vomiting, No Diarrhea Genitourinary Symptoms: No Dysuria Musculoskeletal: No Back Pain, No Neck Pain Skin: No Rash Neurological: No Dizziness, No Focal Weakness, No Sensory Changes Psychological: No Symptoms Endocrine: No Symptoms Hematologic/Lymphatic: No Symptoms Immunological/Allergic: No Symptoms Objective Exam General Appearance: no apparent distress, alert Neurologic Exam: alert, oriented x 3, cooperative, normal mood/affect, nml cerebellar function, sensation nml, No motor deficits Skin Exam: normal color, warm, dry Eye Exam: PERRL, EOMI, eyes nml inspection Ears, Nose, Throat Exam: normal ENT inspection, pharynx normal, moist mucous membranes Neck Exam: normal inspection, non-tender, supple, full range of motion Respiratory Exam: normal breath sounds, lungs clear, No respiratory distress Cardiovascular Exam: regular rate/rhythm, normal heart sounds Gastrointestinal/Abdomen Exam: soft, No tenderness, No mass Extremity Exam: normal inspection, normal range of motion Back Exam: normal inspection, normal range of motion, No CVA tenderness, No vertebral tenderness Male Genitalia Exam: deferred Rectal Exam: deferred OBJECTIVE DATA Vital Signs: Vital Signs - 24 hr Temp Pulse Resp BP Pulse Ox 01/30/21 07:39 98.0 F 76 16 99/55 93 L 01/30/21 07:00 92 L 01/30/21 05:00 97.4 F 78 16 98/60 94 L 01/30/21 01:00 97.4 F 81 16 99/58 95 01/29/21 21:15 86 12 104/61 89 L 01/29/21 21:00 83 12 111/73 91 L 01/29/21 20:45 84 12 115/78 91 L 01/29/21 20:32 93 L 01/29/21 20:30 97.9 F 81 12 110/69 92 L 01/29/21 16:53 97.9 F 79 16 114/72 95 01/29/21 16:00 97.9 F 79 16 114/72 95 Oxygen-Last 24 hours Oxygen Flowrate (L/min)-RT 3 Oxygen Flowrate (L/min)-RT 3 Oxygen Flowrate (L/min)-RT 3 Pain Assessment - Last Documented Pain Intensity 7 Pain Scale Used 0-10 Pain Scale Intake and Output: Intake & Output 01/27/21 01/28/21 01/29/21 01/30/21 11:59 11:59 11:59 11:59 Intake Total 0 3130 Output Total 600 1500 Balance -600 1630 Weight 85.4 kg 85.4 kg Lab Results: Lab Results-Last 24 Hours 01/30/21 01/30/21 Range/Units 05:45 05:45 WBC 6.8 (4.0-10.5) K/mm3 RBC 3.73 L (4.1-5.6) M/mm3 Hgb 13.0 (12.5-18.0) gm/dl Hct 38.4 L (42-50) % MCV 102.9 H (78-100) fl MCH 34.9 H (26-32) pg MCHC 33.9 (32-36) g/dl RDW 14.2 H (11.5-14.0) % Plt Count 147 L (150-450) K/mm3 MPV 9.0 (7.5-11.0) fl Total Bilirubin 0.50 (0.2-1.3) mg/dL Direct Bilirubin 0.2 (0.0-0.4) mg/dL AST 50 (17-59) U/L ALT 187 H (0-50) U/L Alkaline Phosphatase 210 H (38-126) U/L Serum Total Protein 5.4 L (6.3-8.2) g/dL Albumin 3.1 L (3.5-5.0) g/dL Radiology Exams: Radiology Procedures Category Date Time Status ABDOMEN AND PELVIS W/0 CONTRAS [CT] Stat Exams 01/28/21 21:26 Completed MRI ABD W/O CONTRAST [MRI] Routine Exams 01/29/21 09:18 Completed Ultrasound Gallbladder [GALLBLADDER] [US] Urgent Exams 01/29/21 10:39 Completed Assessment/Plan (1) Acute calculous cholecystitis Current Visit: Yes Status: Acute Code(s): K80.00 - CALCULUS OF GALLBLADDER W ACUTE CHOLECYST W/O OBSTRUCTION (2) Abdominal pain Current Visit: Yes Status: Resolved Qualifiers: Abdominal location: generalized Qualified Code(s): R10.84 - Generalized abdominal pain Code(s): R10.9 - UNSPECIFIED ABDOMINAL PAIN
[2021-01-30] MEDS: HYDROCODONE-ACETAMIN 10-325 MG PO PRN (17:47)
[2021-01-30] MEDS: Mirapex 0.5 MG Tablet PO SCH (22:55)
[2021-01-30] MEDS: zyPREXA 5MG TABLET PO SCH (22:56)
[2021-01-31] MEDS: Zosyn 3.375 GM Vial 3.375 GM in Sodium Chloride 100ML MINI-BAG PLUS 100 ML IV SCH ×3 (05:08→17:57)
[2021-01-31 06:06] LABS: ALBUMIN 3.4 g/dL (3.5-5.0); BILIRUBIN,TOTAL 1.1 mg/dL (0.2-1.3); Direct Bilirubin 0.9 mg/dL (0.0-0.4); Total Protein 5.9 g/dL (6.3-8.2)
--- NOTE | 2021-01-31 07:32 | PCM.NOTE ---
Date and Time: 01/31/21730 Subjective Assessment: doing better - Review of Systems Constitutional: No Fever, No Chills Eyes: No Symptoms Ears, Nose, & Throat: No Symptoms Respiratory: No Cough, No Short Of Breath Cardiac: No Chest Pain, No Edema, No Syncope Abdominal/Gastrointestinal: No Abdominal Pain, No Nausea, No Vomiting, No Diarrhea Genitourinary Symptoms: No Dysuria Musculoskeletal: No Back Pain, No Neck Pain Skin: No Rash Neurological: No Dizziness, No Focal Weakness, No Sensory Changes Psychological: No Symptoms Endocrine: No Symptoms Hematologic/Lymphatic: No Symptoms Immunological/Allergic: No Symptoms Objective Exam General Appearance: no apparent distress, alert Neurologic Exam: alert, oriented x 3, cooperative, normal mood/affect, nml cerebellar function, sensation nml, No motor deficits Skin Exam: normal color, warm, dry Eye Exam: PERRL, EOMI, eyes nml inspection Ears, Nose, Throat Exam: normal ENT inspection, pharynx normal, moist mucous membranes Neck Exam: normal inspection, non-tender, supple, full range of motion Respiratory Exam: normal breath sounds, lungs clear, No respiratory distress Cardiovascular Exam: regular rate/rhythm, normal heart sounds Gastrointestinal/Abdomen Exam: soft, No tenderness, No mass Extremity Exam: normal inspection, normal range of motion Back Exam: normal inspection, normal range of motion, No CVA tenderness, No vertebral tenderness Male Genitalia Exam: deferred Rectal Exam: deferred OBJECTIVE DATA Vital Signs: Vital Signs - 24 hr Temp Pulse Resp BP Pulse Ox 01/31/21 05:00 98.9 F 80 16 99/52 92 L 01/31/21 01:00 98.9 F 90 18 114/71 93 L 01/30/21 21:15 93 L 01/30/21 21:00 99.5 F 88 16 112/66 88 L 01/30/21 16:22 98.5 F 89 16 115/57 92 L 01/30/21 11:53 98.3 F 88 16 129/59 91 L 01/30/21 07:39 98.0 F 76 16 99/55 93 L Pain Assessment - Last Documented Pain Intensity 8 Pain Scale Used 0-10 Pain Scale Intake and Output: Intake & Output 01/28/21 01/29/21 01/30/21 01/31/21 11:59 11:59 11:59 11:59 Intake Total 0 3130 2315 Output Total 600 1500 1435 Balance -600 1630 880 Weight 85.4 kg 85.4 kg Lab Results: Lab Results-Last 24 Hours 01/31/21 Range/Units 05:00 Total Bilirubin 1.10 (0.2-1.3) mg/dL Direct Bilirubin 0.9 H (0.0-0.4) mg/dL AST 248 H (17-59) U/L ALT 291 H (0-50) U/L Alkaline Phosphatase 336 H (38-126) U/L Serum Total Protein 5.9 L (6.3-8.2) g/dL Albumin 3.4 L (3.5-5.0) g/dL Radiology Exams: Radiology Procedures Category Date Time Status MRI ABD W/O CONTRAST [MRI] Routine Exams 01/29/21 09:18 Completed Ultrasound Gallbladder [GALLBLADDER] [US] Urgent Exams 01/29/21 10:39 Completed Multi-Disciplinary Progress Notes: Multi-Disciplinary Progress Notes 01/30/21 14:40 Case Management Note by Layla Bethea S/Peggy PATIENT AND URGED HIM TO TAKE HHC. HE IS AGREEABLE AND WAS GIVEN A LIST OF HHC PROVIDERS. HE CHOSE [facility]. 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 HE WILL CONSIDER HHC BUT WOULD LIKE TO WAIT CLOSER TO TIME OF DC TO SEE IF HE NEEDS IT AT THAT TIME. CASE MANAGEMENT WILL CONTINUE TO FOLLOW Initialized on 01/30/21 13:30 - END OF NOTE Assessment/Plan (1) Acute calculous cholecystitis Current Visit: Yes Status: Acute Assessment & Plan: s/p surgery. doing well Code(s): K80.00 - CALCULUS OF GALLBLADDER W ACUTE CHOLECYST W/O OBSTRUCTION (2) Abdominal pain Current Visit: Yes Status: Resolved Qualifiers: Abdominal location: generalized Qualified Code(s): R10.84 - Generalized abdominal pain Code(s): R10.9 - UNSPECIFIED ABDOMINAL PAIN
[2021-01-31] MEDS: Effexor XR 75 MG PO SCH (09:07)
[2021-01-31] MEDS: Nicoderm CQ 21 MG TOP SCH (09:07)
[2021-01-31] MEDS: PATIENT OWN MEDICATION PO SCH ×2 (09:08→22:15)
[2021-01-31] MEDS: KLONOPIN PO SCH ×2 (09:08→22:10)
[2021-01-31] MEDS: HYDROCODONE-ACETAMIN 10-325 MG PO PRN ×3 (09:08→22:09)
[2021-01-31] MEDS: Zofran 4 MG/2 ML VIAL IV PRN (12:04)
[2021-01-31] MEDS: MORPHINE SULFATE 4 MG INJ IV PRN (18:39)
[2021-01-31] MEDS: zyPREXA 5MG TABLET PO SCH (22:09)
[2021-01-31] MEDS: Mirapex 0.5 MG Tablet PO SCH (22:10)
[2021-02-01] MEDS: MORPHINE SULFATE 4 MG INJ IV PRN ×2 (00:11→21:52)
[2021-02-01] MEDS: Zosyn 3.375 GM Vial 3.375 GM in Sodium Chloride 100ML MINI-BAG PLUS 100 ML IV SCH ×5 (00:19→23:33)
[2021-02-01 05:21] LABS: Hematocrit 39.6 % (42-50); Hemoglobin 13.2 gm/dl (12.5-18.0); Mean Cell Volume 103.9 fl (78-100); Mean Corpuscular Hemoglobin 34.6 pg (26-32); Mean Corpuscular Hgb Concent. 33.3 g/dl (32-36); Mean Platelet Volume 9.1 fl (7.5-11.0); Platelet Count 150 K/mm3 (150-450); Red Blood Count 3.81 M/mm3 (4.1-5.6); Red Cell Distribution Width 14.5 % (11.5-14.0); White Blood Count 4.5 K/mm3 (4.0-10.5)
[2021-02-01 05:43] LABS: ALBUMIN 3.3 g/dL (3.5-5.0); BILIRUBIN,TOTAL 0.7 mg/dL (0.2-1.3); Direct Bilirubin 0.5 mg/dL (0.0-0.4); Total Protein 5.6 g/dL (6.3-8.2)
[2021-02-01 05:50] LABS: ALBUMIN 3.4 g/dL (3.5-5.0); ALKALINE PHOSPHATASE 362 U/L (38-126); AMYLASE 41 U/L (30-110); ANION GAP 6.5 MEQ/L (5-15); BLOOD UREA NITROGEN 8 mg/dL (9-20); CHLORIDE 103 mmol/L (98-107); Calcium 8.4 mg/dL (8.4-10.2); Carbon Dioxide 31 mmol/L (22-30); Creatinine 1 0.77 mg/dL (0.66-1.25); EST GLOMERULAR FILTRATION RATE > 60.0 ML/MIN; Glucose 97 mg/dL (74-106); LIPASE 85 U/L (23-300); Potassium 4.3 mmol/L (3.5-5.1); SGOT/AST 173 U/L (17-59); SGPT/ALT 323 U/L (0-50); SODIUM 136 mmol/L (137-145)
[2021-02-01] MEDS: HYDROCODONE-ACETAMIN 10-325 MG PO PRN ×3 (08:31→16:55)
[2021-02-01] MEDS: KLONOPIN PO SCH ×2 (09:53→21:58)
[2021-02-01] MEDS: Effexor XR 75 MG PO SCH (09:53)
[2021-02-01] MEDS: Nicoderm CQ 21 MG TOP SCH (09:53)
[2021-02-01] MEDS: PATIENT OWN MEDICATION PO SCH ×2 (09:54→22:01)
[2021-02-01] MEDS: Zofran 4 MG/2 ML VIAL IV PRN (21:52)
[2021-02-01] MEDS: zyPREXA 5MG TABLET PO SCH (21:59)
[2021-02-01] MEDS: Mirapex 0.5 MG Tablet PO SCH (21:59)
[2021-02-02] MEDS: Zosyn 3.375 GM Vial 3.375 GM in Sodium Chloride 100ML MINI-BAG PLUS 100 ML IV SCH (06:17)
[2021-02-02 10:15] LABS: Absolute Neutrophil Ct (ANC) 4.32 (1.4-6.9); BASOPHIL % 0.2 % (0.0-0.4); Basophil (Absolute #) 0.01 (0-0.4); Eosinophil % 3.3 % (0.00-5.0); Eosinophil (Absolute #) 0.19 (0-0.5); Hemoglobin 13.4 gm/dl (12.5-18.0); Lymphocyte (Absolute #) 0.79 (1.0-4.6); Lymphocytes % 13.8 % (24.0-44.0); Mean Cell Volume 105.3 fl (78-100); Mean Corpuscular Hemoglobin 35.3 pg (26-32); Mean Corpuscular Hgb Concent. 33.5 g/dl (32-36); Mean Platelet Volume 9.3 fl (7.5-11.0); Monocyte (Absolute #) 0.42 (0.0-1.3); Monocytes % 7.3 % (0.0-12.0); Neutrophil % 75.4 % (36.0-66.0); Platelet Count 161 K/mm3 (150-450); Red Cell Distribution Width 14.4 % (11.5-14.0); White Blood Count 5.7 K/mm3 (4.0-10.5)
[2021-02-02 10:28] LABS: ALBUMIN 3.5 g/dL (3.5-5.0); BILIRUBIN,TOTAL 0.5 mg/dL (0.2-1.3); Direct Bilirubin 0.4 mg/dL (0.0-0.4); Total Protein 6.1 g/dL (6.3-8.2)
[2021-02-02] MEDS: KLONOPIN PO SCH (10:48)
[2021-02-02] MEDS: Effexor XR 75 MG PO SCH (10:48)
[2021-02-02] MEDS: Nicoderm CQ 21 MG TOP SCH (10:49)
[2021-02-02] MEDS: PATIENT OWN MEDICATION PO SCH (10:51)
[2021-02-02] MEDS: HYDROCODONE-ACETAMIN 10-325 MG PO PRN (15:11)
--- NOTE | 2021-02-02 16:13 | PCM.DS ---
Discharge Summary Date of Admission: 01/29/21 13:00 Date of Discharge: 02/02/2021 Admitting Physician: KENNETH MCKEON Consults: Consults on Case 01/29/21 01:42 Consult Surgery ROUTINE Primary Care Provider: KENNETH MCKEON Allergies Allergies No Known Drug Allergies Allergy (Verified 01/28/21 21:36) Hospital Summary - Hospital Course Hospital Course: is a 65 year old male.who had 5-day history of generalized abdominal pain prior to admission. Patient had GB US which showed multiple gallstones. Surgery was consulted and patient had a cholecystectomy performed. Please refer to general surgery's op note for details. Patient did develop elevated liver enzymes. Repeat enzymes were ordered which started trending down. It was felt that patient was stable enough to go home. Patient will go home health. Of note prior to DC the patient refused to be discharged without norco 10s pain medication and threatened to luzma if he did not get these medications. This was reported by nursing staff. Patient was instructed to take ibuprofen and tylenol alternating until he could follow up with surgeon on Thursday to discuss pain medication. - Vitals & Intake/Output Vital Signs: Vital Signs Temperature 98.3 F 02/02/21 12:00 Pulse Rate 81 02/02/21 12:00 Respiratory Rate 17 02/02/21 12:00 Blood Pressure 98/54 02/02/21 12:00 O2 Sat by Pulse Oximetry 90 L 02/02/21 12:00 Intake & Output: Intake & Output 01/31/21 02/01/21 02/02/21 02/03/21 11:59 11:59 11:59 11:59 Intake Total 2435 1497 1614 240 Output Total 1465 60 270 Balance 970 1437 1344 240 Weight 85.4 kg - Lab Result Diagrams: 02/02/21 10:05 02/01/21 05:07 Lab Results-Last 24 Hrs: Lab Results-Last 24 Hours 02/02/21 02/02/21 Range/Units 10:05 10:05 WBC 5.7 (4.0-10.5) K/mm3 RBC 3.80 L (4.1-5.6) M/mm3 Hgb 13.4 (12.5-18.0) gm/dl Hct 40.0 L (42-50) % MCV 105.3 H (78-100) fl MCH 35.3 H (26-32) pg MCHC 33.5 (32-36) g/dl RDW 14.4 H (11.5-14.0) % Plt Count 161 (150-450) K/mm3 MPV 9.3 (7.5-11.0) fl Gran % 75.4 H (36.0-66.0) % Eos # (Auto) 0.19 (0-0.5) Absolute Lymphs (auto) 0.79 L (1.0-4.6) Absolute Monos (auto) 0.42 (0.0-1.3) Lymphocytes % 13.8 L (24.0-44.0) % Monocytes % 7.3 (0.0-12.0) % Eosinophils % 3.3 (0.00-5.0) % Basophils % 0.2 (0.0-0.4) % Absolute Granulocytes 4.32 (1.4-6.9) Basophils # 0.01 (0-0.4) Total Bilirubin 0.50 (0.2-1.3) mg/dL Direct Bilirubin 0.4 (0.0-0.4) mg/dL AST 123 H (17-59) U/L ALT 288 H (0-50) U/L Alkaline Phosphatase 374 H (38-126) U/L Serum Total Protein 6.1 L (6.3-8.2) g/dL Albumin 3.5 (3.5-5.0) g/dL - Procedures and Test Procedures and Tests throughout Hospitalization: Therapy Orders & Screens 01/29/21 02:01 Oxygen Nasal Cannula 3 lpm Comment: Diagnosis: Acute cholecystitis Respiratory Therapy Assessment DAILY Comment: Diagnosis: Acute cholecystitis 01/30/21 07:00 Incentive Spirometry TID Comment: Diagnosis: abd pain for 2-3 days Discharge Exam General Appearance: no apparent distress, other (Patient was asleep and only arousable to pain) Neurologic Exam: other (Patient was sleeping during exam so unable to assess) Respiratory Exam: normal breath sounds, lungs clear, No crackles/rales Cardiovascular Exam: regular rate/rhythm, normal heart sounds, No murmur, No friction rub, No gallop Gastrointestinal/Abdomen Exam: soft, normal bowel sounds, tenderness (at incision sites), other (abdominal incisions were clean dry intact. Minimal amount of blood tinged fluid in HARVEY drain.), No distention, No mass, No guarding Male Genitalia Exam: deferred Rectal Exam: deferred Extremity Exam: No pedal edema, No swelling, No tenderness Skin Exam: normal color, warm, dry Final Diagnosis/Problem List - Final Discharge Diagnosis/Problem (1) Elevated liver enzymes Status: Acute Assessment & Plan: Patient had recent cholecystectomy and started to have increased liver enzymes. Patient was evaluated by surgery and it was felt that as long as the enzymes were improving that patient could be discharged and follow up as outpatient. Code(s): R74.8 - ABNORMAL LEVELS OF OTHER SERUM ENZYMES (2) Acute calculous cholecystitis Status: Acute Assessment & Plan: Patient had recent cholecystitis. Patient was evaluated by surgery today and it was felt that patient could go home today. He will follow up with Dr Vásquez on Thursday morning in office. Patient will be going home with home health. Code(s): K80.00 - CALCULUS OF GALLBLADDER W ACUTE CHOLECYST W/O OBSTRUCTION - Discharge Discharge Date: 02/02/21 Disposition: HOME HEALTH SERVICE Condition: Stable Prescriptions: Continue Pramipexole Di-HCl 0.5 mg [Mirapex 0.5 MG Tablet] 0.5 mg PO HS OLANZapine [Olanzapine] 20 mg PO HS Clonazepam [Klonopin] 4 mg PO HS Clonazepam [Klonopin] 2 mg PO QAM Venlafaxine HCl ER 75 mg [Effexor XR 75 MG] 300 mg PO DAILY Armodafinil [Nuvigil] 250 mg PO BID Outpatient Orders: CMP Time Frame: 02/08/21, Facility: [facility], Location: LABORATORY Instructions: Cholecystectomy (DC) Additional Instructions: [facility] WILL CALL YOU TO ARRANGE YOUR FIRST VISIT. YOU MAY REACH THEM AT FOR ANY QUESTIONS/ISSUES LEAVE HARVEY DRAIN IN PLACE UNTIL FOLLOW UP WITH SURGEON ROUTINE DRESSING CARE. Follow up with: SONA VÁSQUEZ [COURTESY STAFF] - 02/04/21 9:50 am KENNETH MCKEON MD [Primary Care Provider] - 02/07/21 10:30 am (at [place]) Forms: Discharge Instructions
[2021-02-02 16:50] VITALS: BP 109/68; PULSE 88; O2SAT 92
== END 2021-02-02 18:24 | disposition home health service (06) | DRG 419 ==
LOC: ED 21:05 → MED SURG 01-29 01:35 → OBSVTOIN 01-29 13:00
PROVIDERS: ADMIT General Practice; ATTEND General Practice
PROC: 0FT44ZZ Resection of Gallbladder, Percutaneous Endoscopic Approach (ICD-10-PCS; principal; 2021-01-29)
DX: K80.00 Calculus of gallbladder with acute cholecystitis without obstruction (principal); R74.8 Abnormal levels of other serum enzymes; R06.02 Shortness of breath; Z79.899 Other long term (current) drug therapy; J44.9 Chronic obstructive pulmonary disease, unspecified; F25.0 Schizoaffective disorder, bipolar type; Z20.828 Contact with and (suspected) exposure to other viral communicable diseases
CPT/HCPCS: 0241U; 36000; 36415; 47562; 74176; 74181; 76705; 80053; 80076; 81001; 82150; 83605; 83690; 84484; 85025; 85027; 93005; 94760; 96360; 96361; 96374; 96375; 96376; 99285; J1956; J2175; J2250; J2270; J2405; J2704; J3010; A9270-GY

== ENCOUNTER 2021-02-08 21:43 | Observation (INO) | payer MEDICARE, BC ==
[2021-02-08] MEDS ORDERED: MORPHINE SULFATE 4 MG INJ IV ONE (21:52)
[2021-02-08] MEDS ORDERED: Sodium Chloride 0.9% 1000 ML 1,000 ML IV STA (21:52)
[2021-02-08] MEDS ORDERED: Zofran 4 MG/2 ML VIAL IV ONE (21:52)
--- NOTE | 2021-02-08 21:59 | ERPHSYRPT ---
- History of Present Illness Time Seen by Provider: 02/08/21 21:45 Historian: patient Exam Limitations: clinical condition Physician History: This is a 65-year-old white male with a history of schizoaffective disorder and bipolar disorder as well as COPD and migraine headaches. Patient underwent a laparoscopic cholecystectomy without any complications approximately 1 and half weeks ago. This was performed by Dr. Uribe. According to the patient's chart, the patient was in the hospital total of 5 days and discharged to home on 02/02/2021. Patient's states that he was in the hospital 9 days. He also stated that there was significant amount of difficulty removing the gallbladder. However, in review of the operative report there was minimal blood loss and no mention of any significant difficulty in the surgery. Patient was discharged to home without pain medication according to my review of the discharge summary. The patient was discharged with a Dago-Fuentes drain in place. Patient states that he has been active at home. He does not have any chest pain or shortness of breath. However, today the pain was significant enough for a could not walk around much and called an ambulance to have him transported to the emergency department. Timing/Duration: today Activities at Onset: none Quality: aching Abdominal Pain Onset Location: generalized abdomen Pain Radiation: no radiation Severity of Pain-Max: moderate Severity of Pain-Current: moderate Associated Symptoms: denies symptoms Previous symptoms: recently seen, recent hospitalization, recently treated Allergies/Adverse Reactions: No Known Drug Allergies Allergy (Verified 01/28/21 21:36) Home Medications: OLANZapine [Olanzapine] 20 mg PO HS 09/27/17 [History] Pramipexole Di-HCl 0.5 mg [Mirapex 0.5 MG Tablet] 0.5 mg PO HS 09/27/17 [History] Armodafinil [Nuvigil] 250 mg PO BID 09/28/17 [History] Clonazepam [Klonopin] 2 mg PO QAM 09/28/17 [History] Clonazepam [Klonopin] 4 mg PO HS 09/28/17 [History] Venlafaxine HCl ER 75 mg [Effexor XR 75 MG] 300 mg PO DAILY 09/28/17 [History] Hx Tetanus, Diphtheria Vaccination/Date Given: Yes Hx Influenza Vaccination/Date Given: Yes Hx Pneumococcal Vaccination/Date Given: Yes Travel Risk - International Travel Have you traveled outside of the country in past 3 weeks: No - Coronavirus Screening Are you exhibiting any of the following symptoms?: No Close contact with a COVID-19 positive Pt in past 14-21 Days: No - Vaccine Status Have you recieved a Covid-19 vaccination: Yes [employer]: Moderna - Vaccination Dates Date of 2cond Vaccination (if applicable): - - Review of Systems Constitutional: No Symptoms Eyes: No Symptoms Ears, Nose, & Throat: No Symptoms Respiratory: No Symptoms Cardiac: No Symptoms Abdominal/Gastrointestinal: Abdominal Pain, No Nausea, No Vomiting, No Diarrhea, No Constipation Genitourinary Symptoms: No Symptoms Musculoskeletal: No Symptoms Skin: No Symptoms Neurological: No Symptoms Psychological: No Symptoms Endocrine: No Symptoms Hematologic/Lymphatic: No Symptoms Immunological/Allergic: No Symptoms All Other Systems: Reviewed and Negative - Past Medical History Pertinent Past Medical History: Yes Neurological History: Migraines ENT History: Macular Degeneration Cardiac History: Other Respiratory History: COPD, Pneumonia Endocrine Medical History: No Pertinent History Musculoskeletal History: No Pertinent History GI Medical History: No Pertinent History History: No Pertinent History Psycho-Social History: Other Male Reproductive Disorders: No Pertinent History Other Medical History: Schizoaffective Disorder, Bipolar, enlarged heart - Past Surgical History Past Surgical History: Yes Neuro Surgical History: No Pertinent History Cardiac: No Pertinent History Respiratory: No Pertinent History Gastrointestinal: Hernia Repair Genitourinary: No Pertinent History Musculoskeletal: Orthopedic Surgery Male Surgical History: No Pertinent History Other Surgical History: HERNIA - Social History Smoking Status: Current every day smoker How long have you smoked: 30 Exposure to second hand smoke: Yes Drug Use: none Patient Lives Alone: No Significant Family History: heart disease - Nursing Vital Signs Nursing Vital Signs: Initial Vital Signs Temperature 97.3 F 02/08/21 21:49 Pulse Rate 84 02/08/21 21:49 Respiratory Rate 20 02/08/21 21:49 Blood Pressure 104/63 02/08/21 21:49 O2 Sat by Pulse Oximetry 94 L 02/08/21 21:49 Pain Scale Pain Intensity 0 - Physical Exam General Appearance: mild distress, alert, anxiety, other (Seems sedated mildly. He is arousable.) Eye Exam: PERRL/EOMI, eyes nml inspection Ears, Nose, Throat Exam: normal ENT inspection, moist mucous membranes Neck Exam: normal inspection, non-tender, supple, full range of motion Respiratory Exam: normal breath sounds, lungs clear, airway intact, No chest tenderness, No respiratory distress Cardiovascular Exam: regular rate/rhythm, normal heart sounds, normal peripheral pulses Gastrointestinal/Abdomen Exam: soft, normal bowel sounds, tenderness (At incision sites.), other (HARVEY drain is in place. Very thin dilute serosanguineous fluid present within the HARVEY drain bulb. There is scant amount present) Back Exam: normal inspection, normal range of motion, No CVA tenderness, No vertebral tenderness Extremity Exam: normal inspection, normal range of motion, pelvis stable Neurologic Exam: alert, oriented x 3, cooperative, lpn rn II-XII nml as tested, normal mood/affect, nml cerebellar function, nml station & gait, sensation nml Skin Exam: normal color, warm, dry, other (Incision sites from recent laparoscopic cholecystectomy are intact without evidence of infection) Lymphatic Exam: No adenopathy SpO2 Interpretation: normal O2 Delivery: Room Air - Course Nursing assessment & vital signs reviewed: Yes Ordered Tests: Active Orders 24 hr Category Date Time Status IV Insertion STAT Care 02/08/21 21:52 Active ABDOMEN AND PELVIS W/0 CONTRAS [CT] Stat Exams 02/08/21 21:53 Taken HEAD WITHOUT CONTRAST [CT] Stat Exams 02/08/21 23:10 Taken AMYLASE Stat Lab 02/08/21 22:05 Completed CBC W DIFF Stat Lab 02/08/21 22:05 Completed CMP Stat Lab 02/08/21 22:05 Completed LIPASE Stat Lab 02/08/21 22:05 Completed UA W/RFX UR CULTURE Stat Lab 02/08/21 21:52 Received Transfer Order Routine Transfer 02/09/21 Ordered Medication Summary Discontinued Medications Generic Name Dose Route Start Last Admin Trade Name Freq PRN Reason Stop Dose Admin Sodium Chloride 1,000 mls @ 999 mls/hr 02/08/21 21:52 02/08/21 22:37 Sodium Chloride 0.9% 1000 Ml IV 02/08/21 22:52 999 mls/hr .Q1H1M STA Administration Sodium Chloride Confirm 02/08/21 22:36 Sodium Chloride 0.9% 1000 Ml Administered 02/08/21 22:37 Dose 1,000 mls @ ud .ROUTE .STK-MED ONE Morphine Sulfate 4 mg 02/08/21 21:52 Morphine Sulfate 4 Mg Inj IV 02/08/21 21:53 STAT ONE Ondansetron HCl 4 mg 02/08/21 21:52 Zofran 4 Mg/2 Ml Vial IV 02/08/21 21:53 STAT ONE Lab/Rad Data: Laboratory Result Diagrams 02/08/21 22:05 02/08/21 22:05 Laboratory Results 02/08/21 02/08/21 Range/Units 22:05 22:05 WBC 7.5 (4.0-10.5) K/mm3 RBC 3.99 L (4.1-5.6) M/mm3 Hgb 13.5 (12.5-18.0) gm/dl Hct 40.5 L (42-50) % MCV 101.5 H (78-100) fl MCH 33.8 H (26-32) pg MCHC 33.3 (32-36) g/dl RDW 13.9 (11.5-14.0) % Plt Count 361 (150-450) K/mm3 MPV 9.0 (7.5-11.0) fl Gran % 73.4 H (36.0-66.0) % Eos # (Auto) 0.29 (0-0.5) Absolute Lymphs (auto) 0.85 L (1.0-4.6) Absolute Monos (auto) 0.84 (0.0-1.3) Lymphocytes % 11.4 L (24.0-44.0) % Monocytes % 11.2 (0.0-12.0) % Eosinophils % 3.9 (0.00-5.0) % Basophils % 0.1 (0.0-0.4) % Absolute Granulocytes 5.48 (1.4-6.9) Basophils # 0.01 (0-0.4) Sodium 133 L (137-145) mmol/L Potassium 3.3 L (3.5-5.1) mmol/L Chloride 99 (98-107) mmol/L Carbon Dioxide 29 (22-30) mmol/L Anion Gap 8.6 (5-15) MEQ/L BUN 10 (9-20) mg/dL Creatinine 0.68 (0.66-1.25) mg/dL Estimated GFR > 60.0 ML/MIN Glucose 81 (74-106) mg/dL Calcium 8.2 L (8.4-10.2) mg/dL Total Bilirubin 0.40 (0.2-1.3) mg/dL AST 21 (17-59) U/L ALT 66 H (0-50) U/L Alkaline Phosphatase 301 H (38-126) U/L Serum Total Protein 6.4 (6.3-8.2) g/dL Albumin 3.7 (3.5-5.0) g/dL Amylase 45 (30-110) U/L Lipase 106 (23-300) U/L - Progress Progress: improved, pain not gone completely, re-examined Progress Note: 02/08/21 23:49 CAT scan of the abdomen and pelvis without contrast shows no evidence of any acute intra-abdominal or pelvic pathology or process. 02/09/21 00:27 Medical decision making: This patient is status post laparoscopic cholecystectomy approximately 10 days ago. Patient was brought into the emergency department by ambulance service because of complaints of abdominal pain. However the patient is very lethargic and sedated. He is arousable. Patient lives alone. His postoperative abdominal work-up is negative. Because the patient is still sedated, and he lives alone, I spoke with Dr. Juares who is covering for the hospital in order to place this patient in observation. She agrees that he requires continued observation. Discussed with : Wilder Counseled pt/family regarding: lab results, diagnosis, need for follow-up, rad results - Departure Departure Disposition: Observation Clinical Impression: Postoperative abdominal pain, Lethargy Condition: Fair Critical Care Time: No Referrals: KENNETH MCKEON MD [Primary Care Provider] -
[2021-02-08 22:11] LABS: Absolute Neutrophil Ct (ANC) 5.48 (1.4-6.9); BASOPHIL % 0.1 % (0.0-0.4); Basophil (Absolute #) 0.01 (0-0.4); Eosinophil % 3.9 % (0.00-5.0); Eosinophil (Absolute #) 0.29 (0-0.5); Hematocrit 40.5 % (42-50); Hemoglobin 13.5 gm/dl (12.5-18.0); Lymphocyte (Absolute #) 0.85 (1.0-4.6); Lymphocytes % 11.4 % (24.0-44.0); Mean Cell Volume 101.5 fl (78-100); Mean Corpuscular Hemoglobin 33.8 pg (26-32); Mean Corpuscular Hgb Concent. 33.3 g/dl (32-36); Monocyte (Absolute #) 0.84 (0.0-1.3); Monocytes % 11.2 % (0.0-12.0); Neutrophil % 73.4 % (36.0-66.0); Platelet Count 361 K/mm3 (150-450); Red Blood Count 3.99 M/mm3 (4.1-5.6); Red Cell Distribution Width 13.9 % (11.5-14.0); White Blood Count 7.5 K/mm3 (4.0-10.5)
[2021-02-08 22:24] LABS: ALBUMIN 3.7 g/dL (3.5-5.0); ALKALINE PHOSPHATASE 301 U/L (38-126); AMYLASE 45 U/L (30-110); ANION GAP 8.6 MEQ/L (5-15); BLOOD UREA NITROGEN 10 mg/dL (9-20); CHLORIDE 99 mmol/L (98-107); Calcium 8.2 mg/dL (8.4-10.2); Carbon Dioxide 29 mmol/L (22-30); Creatinine 1 0.68 mg/dL (0.66-1.25); EST GLOMERULAR FILTRATION RATE > 60.0 ML/MIN; Glucose 81 mg/dL (74-106); LIPASE 106 U/L (23-300); Potassium 3.3 mmol/L (3.5-5.1); SGOT/AST 21 U/L (17-59); SGPT/ALT 66 U/L (0-50); SODIUM 133 mmol/L (137-145); Total Protein 6.4 g/dL (6.3-8.2)
[2021-02-08] MEDS ORDERED: Sodium Chloride 0.9% 1000 ML 1,000 ML ONE (22:36)
[2021-02-09 00:45] LABS: Appearance CLEAR (CLEAR); Bilirubin NEGATIVE (NEGATIVE); Blood SMALL Ery/ul (0-5); Glucose NEGATIVE (NEGATIVE); Ketones TRACE (NEGATIVE); Leukocyte Esterase NEGATIVE (NEGATIVE); Nitrite NEGATIVE (NEGATIVE); Protein,Urine Dip NEGATIVE (Negative); Urobilinogen NEGATIVE mg/dL (0-1); WBC 0-2 /HPF (0-5)
[2021-02-09 00:46] LABS: Bacteria NONE SEEN /HPF (NEGATIVE)
[2021-02-09 01:45] LABS: INFLUENZA A NEGATIVE (NEGATIVE); INFLUENZA B NEGATIVE (NEGATIVE); RESPIRATORY SYNCTIAL VIRUS NEGATIVE (Negative)
[2021-02-09] MEDS ORDERED: FEVERALL 650 MG PR PRN (02:19)
[2021-02-09] MEDS ORDERED: Zofran 4 MG/2 ML VIAL IV PRN (02:19)
[2021-02-09] MEDS ORDERED: Sodium Chloride 0.9% 1000 ML 1,000 ML IV SCH (02:19)
[2021-02-09 07:18] LABS: ALBUMIN 3.6 g/dL (3.5-5.0); ALKALINE PHOSPHATASE 295 U/L (38-126); ANION GAP 10.4 MEQ/L (5-15); BLOOD UREA NITROGEN 8 mg/dL (9-20); CHLORIDE 102 mmol/L (98-107); Calcium 8.3 mg/dL (8.4-10.2); Carbon Dioxide 27 mmol/L (22-30); Creatinine 1 0.63 mg/dL (0.66-1.25); EST GLOMERULAR FILTRATION RATE > 60.0 ML/MIN; Glucose 84 mg/dL (74-106); Potassium 3.7 mmol/L (3.5-5.1); SGOT/AST 24 U/L (17-59); SGPT/ALT 65 U/L (0-50); SODIUM 136 mmol/L (137-145); Total Protein 6.2 g/dL (6.3-8.2)
--- NOTE | 2021-02-09 08:05 | XRAY ---
Indication: Lethargy. Multiple contiguous axial images obtained through the head without contrast. Comparison: March 02, 2015. Age-appropriate global atrophy. No acute intracranial hemorrhage, abnormal extra-axial fluid collection, or mass effect. Fourth ventricle is midline without hydrocephalus. Bony calvarium intact. Moderate mucosal thickening of both ethmoid sinuses. Remaining visualized paranasal sinuses are clear. Impression: Continued negative CT head without contrast exam. Incidental paranasal sinus disease. Comment: Preliminary interpretation was made by [facility]. No critical discrepancy.
--- NOTE | 2021-02-09 08:09 | XRAY ---
Indication: Abdomen pain. Status post cholecystectomy 1.5 weeks ago. Multiple contiguous axial images obtained through the abdomen and pelvis without contrast. Comparison: January 28, 2021. Lung bases again demonstrate scattered subsegmental atelectasis/scarring without infiltrate or effusion. Heart not enlarged. Stable moderate-sized hiatal hernia with paraesophageal hiatal hernia. Noncontrasted stomach and bowel loops remain nonobstructed. Normal appendix. Interval cholecystectomy with HARVEY drain in situ. No free fluid/air. Stable nonobstructing left renal punctate calculus. Remaining liver, pancreas, spleen, adrenal glands, kidneys, ureters, and bladder are unremarkable for noncontrast exam. Stable mild aortoiliac calcifications without AAA. Impression: 1. Status post cholecystectomy with HARVEY drain in situ. No complications. 2. Stable incidental paraesophageal hiatal hernia and nonobstructing left renal punctate calculus. Comment: Preliminary interpretation was made by [facility]. No critical discrepancy.
[2021-02-09] MEDS ORDERED: MEDICATION INTERVENTION PO SCH (11:45)
[2021-02-09] MEDS ORDERED: Effexor XR 75 MG PO SCH (12:00)
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
[2021-02-09 16:33] LABS: Amphetamine,Urine NEGATIVE (NEGATIVE); Barbiturate,Urine NEGATIVE (NEGATIVE); Benzodiazepine,Urine POSITIVE (NEGATIVE); Cocaine,Urine NEGATIVE (NEGATIVE); Methadone,Urine NEGATIVE (NEGATIVE); Opiate,Urine NEGATIVE (NEGATIVE); PCP,Urine NEGATIVE (NEGATIVE); THC,Urine NEGATIVE (NEGATIVE)
[2021-02-09 19:16] VITALS: BP 104/54; PULSE 100; O2SAT 90
[2021-02-09] MEDS ORDERED: zyPREXA 5MG TABLET PO SCH (22:00)
[2021-02-09] MEDS ORDERED: KLONOPIN PO ONE (22:00)
[2021-02-09] MEDS ORDERED: NON-FORMULARY ITEM (Armodafinil [Nuvigil] 250 MG) PO SCH (22:00)
[2021-02-09] MEDS ORDERED: OLANZAPINE 20 MG PO SCH (22:00)
[2021-02-09] MEDS ORDERED: Mirapex 0.5 MG Tablet PO SCH (22:00)
== END 2021-02-09 19:39 | disposition home or self-care (01) ==
LOC: ED 21:43 → MED SURG 02-09 02:08
PROVIDERS: ADMIT General Practice; ATTEND General Practice
DX: R40.0 Somnolence (principal); R53.83 Other fatigue; Z79.899 Other long term (current) drug therapy; J44.9 Chronic obstructive pulmonary disease, unspecified; G43.909 Migraine, unspecified, not intractable, without status migrainosus; F25.0 Schizoaffective disorder, bipolar type; R10.9 Unspecified abdominal pain; G89.18 Other acute postprocedural pain; Z20.828 Contact with and (suspected) exposure to other viral communicable diseases
CPT/HCPCS: 0241U; 36000; 36415; 70450; 74176; 80053; 80307; 81001; 82150; 83690; 85025; 93268; 96360; 99285; G0378; A9270-GY